=== PATIENT | male | born 1935 | race Caucasian/White ===

== ENCOUNTER 2019-07-10 13:21 | Emergency (ER) | payer MEDICARE, OTHER, SELFPAY ==
[2019-07-10 13:30] VITALS: BP 164/58; PULSE 86; RESP 14; TEMP 36.8; O2SAT 100; BMI 37.5
--- NOTE | 2019-07-10 13:41 | ED_ITS ---
HPI - Fall General Chief Complaint: Fall Stated Complaint: Fall, Thinks Broke Rib Time Seen by Provider: 07/10/19 13:35 Source: patient Mode of arrival: Ambulatory Limitations: no limitations History of Present Illness HPI Narrative: The patient is a 84-year-old male who presents with left-sided rib pain. He states that he was at [facility] with his dog when he tripped and landed on a large log. It heart and he feels like bones are moving. He denies shortness of breath. No head injury no loss of consciousness. He currently does not want anything for pain MD complaint: fall Onset (ago): hour(s) Fall from: standing Fall witnessed: no Place fall occurred: other (beach) Loss of consciousness: none Related Data Home Medications Medication Instructions Recorded Confirmed simvastatin 20 mg PO Q DAY #0 04/29/17 aspirin 81 mg tablet,delayed 162 mg PO DAILY 03/26/18 03/26/18 release cholecalciferol (vitamin D3) 50 2,000 unit PO DAILY 03/26/18 03/26/18 mcg (2,000 unit) capsule coQ10 10 ml PO DAILY 03/26/18 03/26/18 glucosamine HCl 1,500 mg tablet 1,500 mg PO DAILY 03/26/18 03/26/18 mecobalamin (vitamin B12) 1,000 1,000 mcg SL DAILY 03/26/18 03/26/18 mcg disintegrating tablet,sublingual multivitamin,dj-atum-[id number] 1 tab PO DAILY 03/26/18 03/26/18 omega 6-sfv-xcn-fish oil 1,200 mg cap PO cap 03/26/18 03/26/18 (144 mg-216 mg) capsule Previous Rx's Medication Instructions Recorded allopurinol 300 mg tablet 300 mg PO Q DAY #30 tab 04/14/18 lisinopril 40 mg tablet 40 mg PO QDAY #30 tab 11/23/18 Allergies Allergy/AdvReac Type Severity Reaction Status Date / Time Penicillins Allergy Verified 07/10/19 13:41 Review of Systems Review of Systems Narrative: GENERAL: Denies chills,fever HEENT: Denies throat pain RESPIRATORY: Denies dyspnea, cough, wheezing CARDIOVASCULAR: Denies chest pain, palpitations GASTROINTESTINAL: Denies nausea, vomiting MUSCULOSKELETAL: Left rib SKIN: No rash, no laceration, no pruritus NEUROLOGIC: Denies weakness, dizziness, headache, numbness 8 point review of systems is negative except for those stated above and HPI Patient History Medical History Cataracts, bilateral (Resolved 2012) Chickenpox (Resolved ~1944) Dupuytren's contracture of both hands (Chronic ~2014) Eczema (Chronic ~2004) Elevated PSA (Chronic 2006) Hyperlipemia (Chronic) Hypertension (Chronic) Kidney stones (Resolved ~1975) Low testosterone (Chronic 2008) Measles (Resolved ~1944) Mumps (Resolved ~1944) Osteoarthritis (Chronic ~2011) Prostate cancer (Resolved 2007) Sleep apnea (Chronic 2012) Surgical History History of cataract removal with insertion of prosthetic lens (2014) History of tonsillectomy (1939) Status post appendectomy (1974) Status post radical cystoprostatectomy (2007) Family History Father No problems noted. Mother Heart disease Social History Smoking Status: Never smoker alcohol intake: current Exam Initial Vital Signs Initial Vital Signs: Vital Signs Temperature 98.2 F 07/10/19 13:30 Pulse Rate 86 07/10/19 13:30 Respiratory Rate 14 07/10/19 13:30 Blood Pressure 164/58 H 07/10/19 13:30 Pulse Oximetry 100 07/10/19 13:30 GENERAL: Alert well-appearing elderly male HEENT: Head atraumatic,EOMI, pupils reactive, face symmetric, moist mucous membranes CARDIOVASCULAR: Regular rate and rhythm without murmurs, rubs or gallops. RESPIRATORY: Breath sounds equal bilaterally, no wheezes rales or rhonchi. Tender to touch left lateral rib the need for and 5 ABDOMEN: Soft, nontender. Normoactive bowel sounds all 4 quadrants. No guarding or rebound. EXTREMITIES: Normal range of motion, no clubbing or edema. Neurovascularly intact NEUROLOGICAL: Alert and oriented x4.Normal gait and speech. Cranial nerves II through XII grossly intact. SKIN: Warm, dry, no laceration, no petechiae, no rashes or lesions. Course Orders Ordered: ED Orders 07/10/19 13:42 XR ribs LT min 3V w CXR1V Stat Vital Signs Vital signs: Vital Signs - 8 hr 07/10/19 13:30 07/10/19 14:23 07/10/19 15:00 Temperature 98.2 F Pulse Rate 86 80 44 L Respiratory Rate 14 Blood Pressure 164/58 H Blood Pressure [Left Arm] 142/62 H 153/68 H Pulse Oximetry 100 98 100 07/10/19 15:30 Temperature Pulse Rate 83 Respiratory Rate Blood Pressure Blood Pressure [Left Arm] Pulse Oximetry MDM - Fall Imaging Data ribs: Radiologist's impression: PROCEDURE: XR RIBS LT MIN 3V W CXR1V INDICATIONS: thinks he broke a rib TECHNIQUE: 2 views of the left ribs were acquired, along with a single view chest. COMPARISON: [facility], CT, ANGIO NECK WITH CONTRAST, 03/22/2016, 9:48. [facility], CR, RIBS UNILATERAL 2 VIEWS, 07/06/2013, 13:04. FINDINGS: Surgical changes and devices: None. Bones and chest wall: Mildly displaced, acute appearing fractures involving the right lateral 9th and 10th ribs. Remote appearing right posterior lateral and left posterior lateral rib fractures are also seen. No suspicious bony lesions. Overlying soft tissues appear unremarkable. Relatively prominent degenerative changes are seen throughout. Lungs and pleura: No pleural effusions or pneumothorax. Lungs appear clear. Mediastinum: Mediastinal contours appear normal. Heart size is normal. Ather osclerotic calcification of the aortic arch is noted. IMPRESSION: Mildly displaced left posterolateral 9th and 10th ribs fractures. Dictated by: Marcus Luis M.D. on 07/10/2019 at 13:51 Approved by: Marcus Luis M.D. on 07/10/2019 at 13:5 [facility] Narrative Medical decision making narrative: No sign of pneumothorax. Patient is offered pain medications multiple times in the ED however he states while sitting he is not in that much pain and he has Tylenol at home. He is offered stronger pain medication to take at home however declines at this time. Discharge Plan Departure Patient Disposition: Home Clinical Impression: Fracture of rib of left side Qualifiers: Encounter type: initial encounter Rib fracture type: multiple ribs Fracture type: closed Qualified Code(s): S22.42XA - Multiple fractures of ribs, left side, initial encounter for closed fracture Discharge Date/Time: 07/10/19 15:30 Activity Restrictions/Additional Instructions: *You have been diagnosed with left-sided rib fracture *What to do: Ribs may hurt for the next 2-3 weeks but should start getting better. They will take up to 8 weeks to heal completely. He may need a pillow to help splint with the pain. He may also try icing 20-30 minutes at a time and removing. *Continue to take medications as directed Tylenol 1000 mg every 6 hours if needed for pain do not exceed more than 4000 mg in 24 hours *Follow up with your primary care provider in 2-3 days *Return to ER if you should have increasing pain, increasing shortness of breath or any new, worsening or concerning symptoms Prescriptions: No Action multivitamin,[id number] [Complete Multivitamin] tablet 1 tab PO DAILY RF: 0 aspirin [Adult Aspirin Regimen] 81 mg tablet,delayed release (DR/EC) 162 mg PO DAILY RF: 0 omega 2-qpj-zmq-fish oil 1,200 (144-216) mg capsule PO RF: 0 glucosamine HCl 1,500 mg tablet 1,500 mg PO DAILY RF: 0 cholecalciferol (vitamin D3) 2,000 unit capsule 2,000 unit PO DAILY RF: 0 mecobalamin (vitamin B12) 1,000 mcg tablet,disintegrating 1,000 mcg SL DAILY RF: 0 coQ10 liquid 10 ml PO DAILY RF: 0 simvastatin 20 MG tablet 20 mg PO Q DAY Qty: 0 RF: 0 allopurinol 300 mg tablet 300 mg PO Q DAY Qty: 30 RF: 6 lisinopril 40 mg tablet 40 mg PO QDAY Qty: 30 RF: 1 Referrals: Billy Rollins [Primary Care Provider] -
[2019-07-10 14:23] VITALS: BP 142/62; PULSE 80; O2SAT 98
[2019-07-10 15:00] VITALS: BP 153/68; PULSE 44; O2SAT 100
[2019-07-10 15:30] VITALS: PULSE 83
== END 2019-07-10 15:30 | disposition home or self-care (01) ==
PROVIDERS: Emergency Provider Emergency Medicine; Family Provider Internal Medicine Hematology & Oncology; PCP Physician Assistant Medical
DX: S22.42XA Multiple fractures of ribs, left side, initial encounter for closed fracture (principal); W01.198A Fall on same level from slipping, tripping and stumbling with subsequent striking against other object, initial encounter
CPT/HCPCS: 71101; 99282; 99283

== ENCOUNTER → 2020-09-21 10:16 | Outpatient (CLI) | payer MEDICARE, OTHER, SELFPAY | PROVIDERS: Family Provider Nurse Practitioner; PCP Nurse Practitioner; Referring Provider Orthopaedic Surgery Foot and Ankle Surgery; Visit Provider Family Medicine | DX: G60.3 Idiopathic progressive neuropathy (principal); L97.523 Non-pressure chronic ulcer of other part of left foot with necrosis of muscle; R60.0 Localized edema | CPT/HCPCS: 11043; 99204; 99213 ==

== ENCOUNTER → 2020-09-21 14:59 | Outpatient (ROUT) | payer MEDICARE, OTHER, SELFPAY | PROVIDERS: Family Provider Nurse Practitioner; PCP Nurse Practitioner; Visit Provider Family Medicine | DX: L08.89 Other specified local infections of the skin and subcutaneous tissue (principal) | CPT/HCPCS: 87070; 87077; 87147; 87205 ==

== ENCOUNTER → 2020-09-28 14:46 | Outpatient (CLI) | payer MEDICARE, OTHER, SELFPAY | PROVIDERS: Family Provider Nurse Practitioner; PCP Nurse Practitioner; Referring Provider Nurse Practitioner; Visit Provider Family Medicine | DX: L97.525 Non-pressure chronic ulcer of other part of left foot with muscle involvement without evidence of necrosis (principal); L08.9 Local infection of the skin and subcutaneous tissue, unspecified | CPT/HCPCS: 11042; 87070; 87075; 87077; 87186; 87205; 99213 ==

== ENCOUNTER → 2020-10-11 11:06 | Outpatient (CLI) | payer MEDICARE, OTHER, SELFPAY | PROVIDERS: Family Provider Nurse Practitioner; PCP Nurse Practitioner; Referring Provider Nurse Practitioner; Visit Provider Family Medicine | DX: G90.09 Other idiopathic peripheral autonomic neuropathy (principal); L97.529 Non-pressure chronic ulcer of other part of left foot with unspecified severity; L08.9 Local infection of the skin and subcutaneous tissue, unspecified; L03.116 Cellulitis of left lower limb | CPT/HCPCS: 87070; 87077; 87186; 87205; 99213; 99214 ==

== ENCOUNTER → 2020-10-17 13:07 | Outpatient (CLI) | payer MEDICARE, OTHER, SELFPAY ==
--- NOTE | 2020-10-17 | DI.MRI.S_ITS ---
PROCEDURE: MR FOOT LT WO/W CON INDICATIONS: Local infection of the skin TECHNIQUE: Noncontrast coronal T1 spin echo and STIR, sagittal T1 spin echo with fat saturation and STIR, axial T1 spin echo and T2 fast spin echo with fat saturation. After the administration of contrast, axial/sagittal/coronal T1 spin echo with fat saturation through the left foot. COMPARISON: None. FINDINGS: Image quality: Excellent. Bones: There is marrow edema involving medial and lateral sesamoids of 1st metatarsal head. No gross bony erosion. No fracture line is seen. No other area of abnormal marrow signal is noted. No suspicious intraosseous lesion. Midfoot and forefoot joint osteoarthritic changes are noted more prominent at 1st MTP joint. No abnormal intraosseous enhancement. Soft tissues: There is full-thickness ulceration involving plantar aspect of left foot at the level of 1st metatarsal head. Thickened underlying flexor tendon of great toe is seen with small amount of fluid distending tendon sheath. No discrete drainable abscess collection is seen. There is also midfoot and forefoot dorsal soft tissue edema and swelling. Extensor and flexor tendons are grossly intact. IMPRESSION: 1. Full-thickness ulceration involving medial aspect of forefoot at the level of 1st metatarsal head with surrounding cellulitis. Cellulitis also seen over dorsal aspect of midfoot and forefoot. No discrete drainable fluid collection is seen. 2. Suggestion of osteomyelitis in the adjacent medial and lateral sesamoid bones of 1st metatarsal head. No other area of abnormal marrow signal is seen. No fracture or dislocation. Midfoot and forefoot joint osteoarthritis. 3. Small amount of fluid surrounding mildly thickened flexor tendon of great toe at the level of 1st metatarsal head and distal shaft suggestive of low to moderate grade tenosynovitis. No full-thickness tendon rupture. Lisfranc ligament and joint is intact. Dictated by: Mervin Goyal M.D. on 10/17/2020 at 15:40 Approved by: Mervin Goyal M.D. on 10/17/2020 at 15:44
== END ==
PROVIDERS: Family Provider Nurse Practitioner; PCP Nurse Practitioner; Referring Provider Family Medicine; Visit Provider Family Medicine
DX: L08.9 Local infection of the skin and subcutaneous tissue, unspecified (principal); L97.529 Non-pressure chronic ulcer of other part of left foot with unspecified severity; L03.116 Cellulitis of left lower limb; M19.072 Primary osteoarthritis, left ankle and foot
CPT/HCPCS: 73720; A9579

== ENCOUNTER → 2020-10-18 10:24 | Outpatient (CLI) | payer MEDICARE, OTHER, SELFPAY | PROVIDERS: Family Provider Nurse Practitioner; PCP Nurse Practitioner; Referring Provider Nurse Practitioner; Visit Provider Family Medicine | DX: G90.09 Other idiopathic peripheral autonomic neuropathy (principal); L97.524 Non-pressure chronic ulcer of other part of left foot with necrosis of bone; M86.172 Other acute osteomyelitis, left ankle and foot; M65.172 Other infective (teno)synovitis, left ankle and foot; L08.9 Local infection of the skin and subcutaneous tissue, unspecified; Z79.2 Long term (current) use of antibiotics; L03.116 Cellulitis of left lower limb | CPT/HCPCS: 36415; 80053; 85025; 85651; 86140; 99213; 99215 ==

== ENCOUNTER → 2020-10-18 11:15 | Outpatient (CLI) | payer MEDICARE, OTHER, SELFPAY ==
[2020-10-18 12:00] LABS: Add Manual Diff / Slide Review NO; Basophils Absolute Auto 0 /uL (0-100); Basophils Percent Auto 0.6 % (0-2); Eosinophils Absolute Auto 100 /uL (0-450); Eosinophils Percent Auto 2.2 % (2-4); Hemoglobin 13.2 g/dL (13.5-17.5); Lymphocytes Absolute Auto 700 /uL (1100-4500); Lymphocytes Percent Auto 12.6 % (25-40); Mean Corpuscular Hemoglobin 30.4 PG (26-34); Monocytes Absolute Auto 500 /uL (0-900); Monocytes Percent Auto 9.6 % (3-14); Neutrophils Absolute Auto 4000 /uL (1500-7000); Platelet Count 343 X10^3/uL (150-400); Red Blood Cell Count 4.35 X10^6/uL (4.5-5.9); Red Cell Distribution Width 14.3 % (11.6-14.8); White Blood Cell Count 5.3 X10^3/uL (4.5-11.0)
[2020-10-18 12:15] LABS: Alanine Aminotransferase 15 IU/L (<50); Albumin 4.7 g/dL (3.5-5.0); Albumin Globulin Ratio 1.7 (1.0-2.8); Alkaline Phosphatase 60 U/L (38-126); Aspartate Aminotransferase 21 IU/L (17-59); BUN Creatinine Ratio 30.2 (6-22); Bilirubin Total 0.3 mg/dL (0.2-1.3); Blood Urea Nitrogen 35 mg/dL (9-20); C-Reactive Protein Quant 0.6 mg/dL (<1.0); Calcium 10.3 mg/dL (8.4-10.2); Carbon Dioxide 27 mmol/L (22-32); Chloride 104 mmol/L (98-107); Estimated Glomerular Filt Rate > 60.0 mL/min (>60); Globulin 2.7 g/dL (1.7-4.1); Glucose 104 mg/dL (80-110); HEMOLYSIS < 15 (0-50); Potassium 4.6 mmol/L (3.4-5.1); Sodium 138 mmol/L (137-145); Total Protein 7.4 g/dL (6.3-8.2)
[2020-10-18 12:43] LABS: Erythrocyte Sedimentation Rate 18 MM/HR (0-15)
== END ==
PROVIDERS: Family Provider Nurse Practitioner; PCP Nurse Practitioner; Referring Provider Family Medicine; Visit Provider Family Medicine
DX: L97.524 Non-pressure chronic ulcer of other part of left foot with necrosis of bone (principal); Z79.2 Long term (current) use of antibiotics; L03.116 Cellulitis of left lower limb
CPT/HCPCS: 36415; 80053; 85025; 85651; 86140

== ENCOUNTER 2020-12-25 16:45 | Emergency (ER) | payer MEDICARE, OTHER, SELFPAY ==
[2020-12-25] VITALS (21 sets, daily range): BP systolic 153–207; BP diastolic 66–95; PULSE 66–82; RESP 30; TEMP 36.4; O2SAT 97–100
--- NOTE | 2020-12-25 17:07 | ED.MALEGU ---
HPI - Male Genitourinary <Christopher Odom DO - Last Filed: 12/26/20 16:56> General Chief complaint: Urogenital-Male Stated complaint: Needs Cath, In Extreme Pain Time Seen by Provider: 12/25/20 16:55 Source: patient Mode of arrival: Ambulatory Limitations: no limitations History of Present Illness HPI Narrative: 85-year-old male nonsmoker with a remote history of radical prostatectomy and previous episodes of hematuria and urinary retention presents with a chief complaint severe suprapubic pain is requesting a catheter. He states he has had difficulty urinating over the course of the day. He denies any dizziness, weakness or lightheadedness. He denies any fever or chills. He has no chest pain or shortness of breath. He does not take any blood thinners. He denies any new medications or dietary change. Onset (ago): hour(s) Duration: constant Severity: moderate Quality: aching Relieving factors: none Exacerbating factors: none Context: new medication Associated symptoms: Reports urinary retention Related Data Home Medications Medication Instructions Recorded Confirmed simvastatin 20 mg PO Q DAY #0 04/29/17 aspirin 81 mg tablet,delayed 162 mg PO DAILY 03/26/18 03/26/18 release cholecalciferol (vitamin D3) 50 2,000 unit PO DAILY 03/26/18 03/26/18 mcg (2,000 unit) capsule coQ10 10 ml PO DAILY 03/26/18 03/26/18 glucosamine HCl 1,500 mg tablet 1,500 mg PO DAILY 03/26/18 03/26/18 mecobalamin (vitamin B12) 1,000 1,000 mcg SL DAILY 03/26/18 03/26/18 mcg disintegrating tablet,sublingual multivitamin,wk-pyzz-cuubdsve 1 tab PO DAILY 03/26/18 03/26/18 omega [id number]-[id number]-fish oil 1,200 mg cap PO cap 03/26/18 03/26/18 (144 mg-216 mg) capsule Previous Rx's Medication Instructions Recorded allopurinol 300 mg tablet 300 mg PO Q DAY #30 tab 04/14/18 lisinopril 40 mg tablet 40 mg PO QDAY #30 tab 11/23/18 Allergies Allergy/AdvReac Type Severity Reaction Status Date / Time Penicillins Allergy Verified 07/10/19 13:41 Review of Systems <Christopher Odom DO - Last Filed: 12/26/20 16:56> Constitutional Constitutional: Denies chills, Denies fatigue, Denies fever(s), Denies frequent falls, Denies lethargy and Denies weakness Eyes Eyes: Denies change in vision, Denies eye discharge, Denies irritation and Denies loss of vision ENT Ears, Nose, Mouth, and Throat: Denies change in voice, Denies dizziness, Denies neck pain, Denies sore throat and Denies throat swelling Cardiovascular Cardiovascular: Denies chest pain, Denies irregular heart rhythm, Denies lightheadedness, Denies palpitations, Denies dyspnea, Denies dyspnea on exertion and Denies orthopnea Respiratory Respiratory: Denies cough, Denies dyspnea, Denies dyspnea on exertion and Denies wheezing Gastrointestinal Gastrointestinal: Denies abdominal pain, Denies change in bowel habits, Denies diarrhea, Denies nausea and Denies vomiting Musculoskeletal Musculoskeletal: Denies neck pain and Denies numbness Integumentary/Breasts Skin/Breast: Denies pruritus, Denies erythema, Denies rash and Denies wounds Neurologic Neurologic: Denies behavioral changes, Denies confusion, Denies dizziness, Denies frequent falls, Denies loss of vision, Denies numbness and Denies weakness Psychiatric Psychiatric: Denies anxiety, Denies behavioral changes, Denies confusion, Denies depression, Denies homicidal ideation and Denies suicidal ideation Endocrine Endocrine: Denies fatigue, Denies flushing and Denies palpitations Hematologic/Lymphatic Hematologic/Lymphatic: Denies easy bruising Allergic/Immunologic Allergic/Immunologic: Denies urticaria, Denies throat swelling and Denies wheezing Patient History <Christopher Odom DO - Last Filed: 12/26/20 16:56> Medical History (Updated 12/25/20 @ 20:57 by Christopher Odom DO) Cataracts, bilateral (2012) Chickenpox (~1945) Dupuytren's contracture of both hands (~2014) Eczema (~2004) Elevated PSA (2006) Hyperlipemia Hypertension Kidney stones (~1975) Low testosterone (2008) Measles (~194) Mumps (~194) Osteoarthritis (~2011) Prostate cancer (2007) Sleep apnea (2012) Surgical History History of cataract removal with insertion of prosthetic lens (2014) History of tonsillectomy (1940) Status post appendectomy (1974) Status post radical cystoprostatectomy (2007) Family History Father No problems noted. Mother Heart disease Social History Smoking Status: Never smoker alcohol intake: current Smoking Status: Never smoker alcohol intake frequency: a few times a week Alcohol type: wine Substance Use Type: does not use Exam <Christopher Odom DO - Last Filed: 12/26/20 16:56> Narrative Exam Narrative: GENERAL: [85] year old patient appears stated age. Well-nourished, well-developed patient, in mild distress. Hard of hearing HEAD: Atraumatic. Normocephalic. EYES: Pupils equal round and reactive. Extraocular motions intact. No scleral icterus. No injection or drainage. ENT: Nose without bleeding, purulent drainage. Throat without erythema, tonsillar hypertrophy or exudate. Airway patent. NECK: Trachea midline. Non tender CARDIOVASCULAR: Regular rate and rhythm without murmurs, gallops, or rubs. RESPIRATORY: Clear to auscultation. Breath sounds equal bilaterally. No wheezes, rales, or rhonchi. GASTROINTESTINAL: Abdomen soft, suprapubic tenderness, nondistended. EXTREMITIES: No edema or joint tenderness. BACK: Nontender without deformity or crepitance. No flank tenderness. NEURO: AOx3. SKIN: No rash or erythema of visible areas Initial Vital Signs Initial Vital Signs: Vital Signs Temperature 97.5 F L 12/25/20 16:55 Pulse Rate 67 12/25/20 16:55 Respiratory Rate 30 H 12/25/20 16:55 Blood Pressure 194/92 H 12/25/20 16:55 Pulse Oximetry 98 12/25/20 16:55 <Joni Norwood DO - Last Filed: 12/26/20 06:44> Initial Vital Signs Initial Vital Signs: Vital Signs Temperature 97.5 F L 12/25/20 16:55 Pulse Rate 67 12/25/20 16:55 Respiratory Rate 30 H 12/25/20 16:55 Blood Pressure 194/92 H 12/25/20 16:55 Pulse Oximetry 98 12/25/20 16:55 <Anna Ríos, DO - Last Filed: 12/26/20 19:07> Initial Vital Signs Initial Vital Signs: Vital Signs Temperature 97.5 F L 12/25/20 16:55 Pulse Rate 67 12/25/20 16:55 Respiratory Rate 30 H 12/25/20 16:55 Blood Pressure 194/92 H 12/25/20 16:55 Pulse Oximetry 98 12/25/20 16:55 Course <Christopher Odom, DO - Last Filed: 12/26/20 16:56> Course Course Narrative: Bladder scan suggest very little urine in the bladder, however 3 way Jones catheter is placed and notes gross hematuria up to about 500 mL. The patient has a near immediate and complete relief of his discomfort. Labs ordered, CT IVP and instruction to irrigate bladder to clear initiated patient still not clear after 3L irrigation, call to our on-call urologist upon receipt of the CT IVP and after discussion of the findings he recommends transfer to a facility that has interventional radiology as he states that he would be unlikely to place a ureteral stent based on the findings of the CT. 2099 -I have discussed the case with Urology at [facility] and he states that the facility would be appropriate if and when a bed opens up as Interventional Radiology would routinely back him up under the circumstances. We have placed the patient in the cue for a bed, hopefully early tomorrow 2100 - VM contacted given the possibility of bed availability Orders Ordered: ED Orders 12/26/20 15:15 BMP [Basic Metabolic Panel] Stat Complete Blood Count AUTO DIFF Stat Discontinued Medications Melatonin (Melatonin 3 Mg Tablet) 9 mg PO BEDTIME [facility] Melatonin (Melatonin 3 Mg Tablet) 9 mg PO NOW ONE Stop: 12/26/20 00:48 Last Admin: 12/26/20 00:56 Dose: 9 mg Documented by: NINOSKA Sodium Chloride (Sodium Chloride Irrig Solution 3,000 Ml) 3,000 ml IRR NOW ONE Stop: 12/25/20 21:43 Last Admin: 12/25/20 21:43 Dose: 3,000 ml Documented by: ALISA Sodium Chloride (Sodium Chloride Irrig Solution 3,000 Ml) 3,000 ml IRR NOW ONE Stop: 12/25/20 23:03 Last Admin: 12/25/20 23:05 Dose: 3,000 ml Documented by: ALISA Sodium Chloride (Sodium Chloride Irrig Solution 3,000 Ml) 3,000 ml IRR NOW ONE Stop: 12/26/20 00:11 Last Admin: 12/26/20 00:12 Dose: 3,000 ml Documented by: NINOSKA Sodium Chloride (Sodium Chloride Irrig Solution 3,000 Ml) 3,000 ml IRR NOW ONE Stop: 12/26/20 03:18 Last Admin: 12/26/20 03:20 Dose: 3,000 ml Documented by: NINOSKA Sodium Chloride (Sodium Chloride Irrig Solution 3,000 Ml) 3,000 ml IRR NOW ONE Stop: 12/26/20 04:28 Last Admin: 12/26/20 04:28 Dose: 3,000 ml Documented by: NINOSKA Vital Signs Vital signs: Vital Signs - 8 hr 12/26/20 11:30 12/26/20 11:31 12/26/20 12:00 Pulse Rate 76 71 73 Blood Pressure 182/82 H Pulse Oximetry 98 98 98 12/26/20 12:01 12/26/20 12:30 12/26/20 12:31 Pulse Rate 71 72 70 Blood Pressure 174/81 H 170/83 H Pulse Oximetry 98 98 98 12/26/20 13:00 12/26/20 13:01 12/26/20 13:30 Pulse Rate 74 69 69 Blood Pressure 167/77 H Pulse Oximetry 98 98 97 12/26/20 13:31 12/26/20 14:00 12/26/20 14:01 Pulse Rate 77 74 75 Blood Pressure 153/69 H 184/80 H Pulse Oximetry 98 98 98 12/26/20 14:30 12/26/20 14:31 12/26/20 15:00 Pulse Rate 71 76 79 Blood Pressure 179/85 H Pulse Oximetry 98 98 98 12/26/20 15:01 12/26/20 15:30 12/26/20 15:31 Pulse Rate 73 76 80 Blood Pressure 174/81 H 175/82 H Pulse Oximetry 98 99 98 12/26/20 16:00 12/26/20 16:01 Pulse Rate 77 77 Blood Pressure 176/79 H Pulse Oximetry 97 98 <Joni Norwood DO - Last Filed: 12/26/20 06:44> Orders Ordered: ED Orders 12/26/20 15:15 BMP [Basic Metabolic Panel] Stat Complete Blood Count AUTO DIFF Stat Discontinued Medications Melatonin (Melatonin 3 Mg Tablet) 9 mg PO BEDTIME [facility] Melatonin (Melatonin 3 Mg Tablet) 9 mg PO NOW ONE Stop: 12/26/20 00:48 Last Admin: 12/26/20 00:56 Dose: 9 mg Documented by: NINOSKA Sodium Chloride (Sodium Chloride Irrig Solution 3,000 Ml) 3,000 ml IRR NOW ONE Stop: 12/25/20 21:43 Last Admin: 12/25/20 21:43 Dose: 3,000 ml Documented by: ALISA Sodium Chloride (Sodium Chloride Irrig Solution 3,000 Ml) 3,000 ml IRR NOW ONE Stop: 12/25/20 23:03 Last Admin: 12/25/20 23:05 Dose: 3,000 ml Documented by: ALISA Sodium Chloride (Sodium Chloride Irrig Solution 3,000 Ml) 3,000 ml IRR NOW ONE Stop: 12/26/20 00:11 Last Admin: 12/26/20 00:12 Dose: 3,000 ml Documented by: NINOSKA Sodium Chloride (Sodium Chloride Irrig Solution 3,000 Ml) 3,000 ml IRR NOW ONE Stop: 12/26/20 03:18 Last Admin: 12/26/20 03:20 Dose: 3,000 ml Documented by: NINOSKA Sodium Chloride (Sodium Chloride Irrig Solution 3,000 Ml) 3,000 ml IRR NOW ONE Stop: 12/26/20 04:28 Last Admin: 12/26/20 04:28 Dose: 3,000 ml Documented by: NINOSKA Vital Signs Vital signs: Vital Signs - 8 hr 12/26/20 11:30 12/26/20 11:31 12/26/20 12:00 Pulse Rate 76 71 73 Blood Pressure 182/82 H Pulse Oximetry 98 98 98 12/26/20 12:01 12/26/20 12:30 12/26/20 12:31 Pulse Rate 71 72 70 Blood Pressure 174/81 H 170/83 H Pulse Oximetry 98 98 98 12/26/20 13:00 12/26/20 13:01 12/26/20 13:30 Pulse Rate 74 69 69 Blood Pressure 167/77 H Pulse Oximetry 98 98 97 12/26/20 13:31 12/26/20 14:00 12/26/20 14:01 Pulse Rate 77 74 75 Blood Pressure 153/69 H 184/80 H Pulse Oximetry 98 98 98 12/26/20 14:30 12/26/20 14:31 12/26/20 15:00 Pulse Rate 71 76 79 Blood Pressure 179/85 H Pulse Oximetry 98 98 98 12/26/20 15:01 12/26/20 15:30 12/26/20 15:31 Pulse Rate 73 76 80 Blood Pressure 174/81 H 175/82 H Pulse Oximetry 98 99 98 12/26/20 16:00 12/26/20 16:01 Pulse Rate 77 77 Blood Pressure 176/79 H Pulse Oximetry 97 98 <Anna Ríos DO - Last Filed: 12/26/20 19:07> Orders Ordered: ED Orders 12/26/20 15:15 BMP [Basic Metabolic Panel] Stat Complete Blood Count AUTO DIFF Stat Discontinued Medications Melatonin (Melatonin 3 Mg Tablet) 9 mg PO BEDTIME [facility] Melatonin (Melatonin 3 Mg Tablet) 9 mg PO NOW ONE Stop: 12/26/20 00:48 Last Admin: 12/26/20 00:56 Dose: 9 mg Documented by: NINOSKA Sodium Chloride (Sodium Chloride Irrig Solution 3,000 Ml) 3,000 ml IRR NOW ONE Stop: 12/25/20 21:43 Last Admin: 12/25/20 21:43 Dose: 3,000 ml Documented by: ALISA Sodium Chloride (Sodium Chloride Irrig Solution 3,000 Ml) 3,000 ml IRR NOW ONE Stop: 12/25/20 23:03 Last Admin: 12/25/20 23:05 Dose: 3,000 ml Documented by: ALISA Sodium Chloride (Sodium Chloride Irrig Solution 3,000 Ml) 3,000 ml IRR NOW ONE Stop: 12/26/20 00:11 Last Admin: 12/26/20 00:12 Dose: 3,000 ml Documented by: NINOSKA Sodium Chloride (Sodium Chloride Irrig Solution 3,000 Ml) 3,000 ml IRR NOW ONE Stop: 12/26/20 03:18 Last Admin: 12/26/20 03:20 Dose: 3,000 ml Documented by: NINOSKA Sodium Chloride (Sodium Chloride Irrig Solution 3,000 Ml) 3,000 ml IRR NOW ONE Stop: 12/26/20 04:28 Last Admin: 12/26/20 04:28 Dose: 3,000 ml Documented by: NINOSKA Consultations Consultation #1: Dr. Mendoza hospitalist at [facility], it happy to accept the patient but would like us to speak with Urology first before transfer. No beds current available at the moment. Consultation #2: Dr. Gonzalez at [facility] accepts for transfer. Discussed recommendations from Dr. Morley urology at [facility] last night that was discussed with Dr. Odom at that time and patient needs urology and IR for treatment per our urology and is not available to us. Reviewed patient's labs, imaging and past history. Time: 14:31 Vital Signs Vital signs: Vital Signs - 8 hr 12/26/20 11:30 12/26/20 11:31 12/26/20 12:00 Pulse Rate 76 71 73 Blood Pressure 182/82 H Pulse Oximetry 98 98 98 12/26/20 12:01 12/26/20 12:30 12/26/20 12:31 Pulse Rate 71 72 70 Blood Pressure 174/81 H 170/83 H Pulse Oximetry 98 98 98 12/26/20 13:00 12/26/20 13:01 12/26/20 13:30 Pulse Rate 74 69 69 Blood Pressure 167/77 H Pulse Oximetry 98 98 97 12/26/20 13:31 12/26/20 14:00 12/26/20 14:01 Pulse Rate 77 74 75 Blood Pressure 153/69 H 184/80 H Pulse Oximetry 98 98 98 12/26/20 14:30 12/26/20 14:31 12/26/20 15:00 Pulse Rate 71 76 79 Blood Pressure 179/85 H Pulse Oximetry 98 98 98 12/26/20 15:01 12/26/20 15:30 12/26/20 15:31 Pulse Rate 73 76 80 Blood Pressure 174/81 H 175/82 H Pulse Oximetry 98 99 98 12/26/20 16:00 12/26/20 16:01 Pulse Rate 77 77 Blood Pressure 176/79 H Pulse Oximetry 97 98 MDM - Male Genitourinary <Christopher Odom, DO - Last Filed: 12/26/20 16:56> Lab Data Result diagrams: 12/26/20 15:15 12/26/20 15:15 Labs: Lab Results 12/25/20 12/25/20 12/25/20 Range/Units 17:28 17:28 17:28 WBC 6.5 (4.5-11.0) X10^3/uL RBC 3.89 L (4.5-5.9) X10^6/uL Hgb 11.8 L (13.5-17.5) g/dL Hct 36.1 L (41-53) % MCV 92.8 (80-100) fL MCH 30.4 (26-34) PG MCHC 32.8 (30-36) % RDW 15.5 H (11.6-14.8) % Plt Count 267 (150-400) X10^3/uL Neut % (Auto) 81.8 H (50-75) % Lymph % (Auto) 11.4 L (25-40) % Alfalfa % (Auto) 6.6 (3-14) % Eos % (Auto) 0.0 L (2-4) % Baso % (Auto) 0.2 (0-2) % Neut # (Auto) 5300 (4635-7128) /uL Lymph # (Auto) 700 L (0154-4989) /uL Alfalfa # (Auto) 400 (0-900) /uL Eos # (Auto) 0 (0-450) /uL Baso # (Auto) 0 (0-100) /uL PT 13.4 H (10.1-12.7) SECONDS INR 1.2 (0.9-1.3) Sodium (137-145) mmol/L Potassium (3.4-5.1) mmol/L Chloride (98-107) mmol/L Carbon Dioxide (22-32) mmol/L BUN (9-20) mg/dL Creatinine (0.66-1.25) mg/dL Estimated GFR (>60) mL/min BUN/Creatinine Ratio (6-22) Glucose (80-110) mg/dL Calcium (8.4-10.2) mg/dL Total Bilirubin (0.2-1.3) mg/dL AST (17-59) IU/L ALT (<50) IU/L Alkaline Phosphatase (38-126) U/L Total Protein (6.3-8.2) g/dL Albumin (3.5-5.0) g/dL Globulin (1.7-4.1) g/dL Albumin/Globulin Ratio (1.0-2.8) Urine Color Red Urine Appearance Turbid Urine pH 7.0 (4.5-8.0) Ur Specific [place] 1.015 (1.000-1.035) Urine Protein 3+ H (Negative) Urine Glucose (UA) Trace H (Negative) g/dL Urine Ketones Negative (NEGATIVE) Urine Occult Blood 3+ H (Negative) Urine Nitrate Negative (Negative) Urine Bilirubin Negative (NEGATIVE) Urine Urobilinogen 0.2 (0.2) E.U./dL Ur Leukocyte Esterase Trace H (NEGATIVE) Urine RBC >100/hpf H (0-5/HPF) Urine WBC None seen (0-5/HPF) Ur Squamous Epith Cells None seen (0-5/HPF) Urine Bacteria None seen (None) Ur Culture Indicated? Cult not indicated SARS-CoV-2 (PCR) (Negative) Blood Type Antibody Screen 12/25/20 12/25/20 12/25/20 Range/Units 17:28 19:24 19:41 WBC (4.5-11.0) X10^3/uL RBC (4.5-5.9) X10^6/uL Hgb 12.0 L (13.5-17.5) g/dL Hct 36.1 L (41-53) % MCV (80-100) fL MCH (26-34) PG MCHC (30-36) % RDW (11.6-14.8) % Plt Count (150-400) X10^3/uL Neut % (Auto) (50-75) % Lymph % (Auto) (25-40) % Alfalfa % (Auto) (3-14) % Eos % (Auto) (2-4) % Baso % (Auto) (0-2) % Neut # (Auto) (9852-4149) /uL Lymph # (Auto) (4880-2573) /uL Alfalfa # (Auto) (0-900) /uL Eos # (Auto) (0-450) /uL Baso # (Auto) (0-100) /uL PT (10.1-12.7) SECONDS INR (0.9-1.3) Sodium 136 L (137-145) mmol/L Potassium 5.1 (3.4-5.1) mmol/L Chloride 105 (98-107) mmol/L Carbon Dioxide 19 L (22-32) mmol/L BUN 34 H (9-20) mg/dL Creatinine 1.56 H (0.66-1.25) mg/dL Estimated GFR 42.7 L (>60) mL/min BUN/Creatinine Ratio 21.8 (6-22) Glucose 125 H (80-110) mg/dL Calcium 10.4 H (8.4-10.2) mg/dL Total Bilirubin 0.3 (0.2-1.3) mg/dL AST 24 (17-59) IU/L ALT 13 (<50) IU/L Alkaline Phosphatase 58 (38-126) U/L Total Protein 7.5 (6.3-8.2) g/dL Albumin 4.5 (3.5-5.0) g/dL Globulin 3.0 (1.7-4.1) g/dL Albumin/Globulin Ratio 1.5 (1.0-2.8) Urine Color Urine Appearance Urine pH (4.5-8.0) Ur Specific [place] (1.000-1.035) Urine Protein (Negative) Urine Glucose (UA) (Negative) g/dL Urine Ketones (NEGATIVE) Urine Occult Blood (Negative) Urine Nitrate (Negative) Urine Bilirubin (NEGATIVE) Urine Urobilinogen (0.2) E.U./dL Ur Leukocyte Esterase (NEGATIVE) Urine RBC (0-5/HPF) Urine WBC (0-5/HPF) Ur Squamous Epith Cells (0-5/HPF) Urine Bacteria (None) Ur Culture Indicated? SARS-CoV-2 (PCR) Negative (Negative) Blood Type Antibody Screen 12/25/20 12/25/20 12/25/20 Range/Units 19:41 19:45 23:30 WBC (4.5-11.0) X10^3/uL RBC (4.5-5.9) X10^6/uL Hgb 11.4 L (13.5-17.5) g/dL Hct 35.0 L (41-53) % MCV (80-100) fL MCH (26-34) PG MCHC (30-36) % RDW (11.6-14.8) % Plt Count (150-400) X10^3/uL Neut % (Auto) (50-75) % Lymph % (Auto) (25-40) % Alfalfa % (Auto) (3-14) % Eos % (Auto) (2-4) % Baso % (Auto) (0-2) % Neut # (Auto) (5673-1549) /uL Lymph # (Auto) (5945-0866) /uL [place]alfa # (Auto) (0-900) /uL Eos # (Auto) (0-450) /uL Baso # (Auto) (0-100) /uL PT (10.1-12.7) SECONDS INR (0.9-1.3) Sodium (137-145) mmol/L Potassium (3.4-5.1) mmol/L Chloride (98-107) mmol/L Carbon Dioxide (22-32) mmol/L BUN (9-20) mg/dL Creatinine 1.41 H (0.66-1.25) mg/dL Estimated GFR 48.0 L (>60) mL/min BUN/Creatinine Ratio (6-22) Glucose (80-110) mg/dL Calcium (8.4-10.2) mg/dL Total Bilirubin (0.2-1.3) mg/dL AST (17-59) IU/L ALT (<50) IU/L Alkaline Phosphatase (38-126) U/L Total Protein (6.3-8.2) g/dL Albumin (3.5-5.0) g/dL Globulin (1.7-4.1) g/dL Albumin/Globulin Ratio (1.0-2.8) Urine Color Urine Appearance Urine pH (4.5-8.0) Ur Specific [place] (1.000-1.035) Urine Protein (Negative) Urine Glucose (UA) (Negative) g/dL Urine Ketones (NEGATIVE) Urine Occult Blood (Negative) Urine Nitrate (Negative) Urine Bilirubin (NEGATIVE) Urine Urobilinogen (0.2) E.U./dL Ur Leukocyte Esterase (NEGATIVE) Urine RBC (0-5/HPF) Urine WBC (0-5/HPF) Ur Squamous Epith Cells (0-5/HPF) Urine Bacteria (None) Ur Culture Indicated? SARS-CoV-2 (PCR) (Negative) Blood Type A Positive Antibody Screen Negative 12/26/20 12/26/20 Range/Units 15:15 15:15 WBC 7.2 (4.5-11.0) X10^3/uL RBC 3.85 L (4.5-5.9) X10^6/uL Hgb 11.7 L (13.5-17.5) g/dL Hct 35.9 L (41-53) % MCV 93.3 (80-100) fL MCH 30.4 (26-34) PG MCHC 32.6 (30-36) % RDW 15.8 H (11.6-14.8) % Plt Count 280 (150-400) X10^3/uL Neut % (Auto) 78.3 H (50-75) % Lymph % (Auto) 12.3 L (25-40) % Alfalfa % (Auto) 9.2 (3-14) % Eos % (Auto) 0.0 L (2-4) % Baso % (Auto) 0.2 (0-2) % Neut # (Auto) 5600 (9300-5771) /uL Lymph # (Auto) 900 L (2986-1345) /uL Alfalfa # (Auto) 700 (0-900) /uL Eos # (Auto) 0 (0-450) /uL Baso # (Auto) 0 (0-100) /uL PT (10.1-12.7) SECONDS INR (0.9-1.3) Sodium 136 L (137-145) mmol/L Potassium 4.5 (3.4-5.1) mmol/L Chloride 105 (98-107) mmol/L Carbon Dioxide 23 (22-32) mmol/L BUN 32 H (9-20) mg/dL Creatinine 1.40 H (0.66-1.25) mg/dL Estimated GFR 48.4 L (>60) mL/min BUN/Creatinine Ratio 22.9 H (6-22) Glucose 119 H (80-110) mg/dL Calcium 10.8 H (8.4-10.2) mg/dL Total Bilirubin (0.2-1.3) mg/dL AST (17-59) IU/L ALT (<50) IU/L Alkaline Phosphatase (38-126) U/L Total Protein (6.3-8.2) g/dL Albumin (3.5-5.0) g/dL Globulin (1.7-4.1) g/dL Albumin/Globulin Ratio (1.0-2.8) Urine Color Urine Appearance Urine pH (4.5-8.0) Ur Specific [place] (1.000-1.035) Urine Protein (Negative) Urine Glucose (UA) (Negative) g/dL Urine Ketones (NEGATIVE) Urine Occult Blood (Negative) Urine Nitrate (Negative) Urine Bilirubin (NEGATIVE) Urine Urobilinogen (0.2) E.U./dL Ur Leukocyte Esterase (NEGATIVE) Urine RBC (0-5/HPF) Urine WBC (0-5/HPF) Ur Squamous Epith Cells (0-5/HPF) Urine Bacteria (None) Ur Culture Indicated? SARS-CoV-2 (PCR) (Negative) Blood Type Antibody Screen Imaging Data CT scan - abdomen/pelvis: Radiologist's Impression: Abby Chaney N 85 M [address] [id number] Scan ReportSigned Patient: Abby Chaney NMR#: [id number]: [id number]:[id number]/Sex: 85 / MDate of Service: 12/25/20Loc: EDAccession Number: [id number] Procedure: CT abdomen pelvis wo/w con Ordering Provider: Christopher Odom D.O. PROCEDURE: CT ABDOMEN PELVIS WO/W CON INDICATIONS: significant hematuria TECHNIQUE: After the administration of oral contrast, 5 mm thick sections acquired from the diaphragms to the iliac crests. After the administration of intravenous contrast, 5 mm thick sections acquired from the diaphragms to the symphysis. 5 mm thick coronal and sagittal reformats were acquired. For radiation dose reduction, the following was used: automated exposure control, adjustment of mA and/or kV according to patient size. COMPARISON: None. FINDINGS: Image quality: Excellent. ABDOMEN: Lung bases: Scattered fibrotic changes at the posterior lung bases. Heavy coronary artery calcification.. Heart size is normal. Solid organs: Moderate left hydronephrosis and diffuse, tortuous left hydroureter. No left intrarenal calculi or significant perinephric inflammation. Mild right hydronephrosis and minor distal hydroureter. There is a finally septated right renal cyst in the lower pole of the right kidney. This measures about 3.1 cm. Postcontrast, there is no excretion of IV contrast seen from the left kidney. Mild , slightly decreased homogeneous enhancement of the left renal parenchyma. Scattered subcentimeter hypodensities throughout the liver. The right lobe of the liver is elongated. Several small parenchymal calcifications are seen throughout the pancreas. No ductal dilatation. The gallbladder and biliary tree are normal. The adrenal glands demonstrate nodular thickening bilaterally without dominant mass. Spleen is normal. Bowel and peritoneum: Stomach, small and large bowel loops are normal in caliber and wall thickness. Sigmoid diverticulosis. No free fluid or air. Nodes and vessels: No retroperitoneal or mesenteric adenopathy by size criteria. Aorta and inferior vena are normal in caliber. Heavy abdominal aortic atherosclerotic calcification. Miscellaneous: Tiny fat containing umbilical hernia. PELVIS: Genitourinary: The urinary bladder is mildly distended and there is a large hyperdense intraluminal mass adjacent to Jones catheter balloon. This measures roughly 7.4 x 4.9 x 6.3 cm. Along the left aspect of the urinary bladder and obstructing the left ureterovesicular junction, there is irregular, enhancing wall thickening suspicious for mass.. Miscellaneous: There is a peripherally calcified involuting cystic mass in the right adnexa measuring 5.6 by 3.7 cm, previously 8.6 by 5.7 cm in the remote past. No inguinal hernias or adenopathy. Fat containing suprapubic hernia. Bones: No suspicious bony lesions. Diffuse osteopenia. Spondylosis at L5-S1 and bridging osteophytosis throughout the spine. No vertebral body compression fractures. IMPRESSION: 1. Diffuse thickening of the left urinary bladder wall obstructing left ureterovesicular junction is suspicious for carcinoma. There is a large adjacent hematoma in the urinary bladder as well as a Jones catheter. 2. There is asymmetric, absence of excretion of contrast from the left kidney suggesting significant delay in function as well as chronic left hydroureteronephrosis. This is likely due to obstructing distal mass causing decreased renal function. 3. 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 4. No visible adenopathy. 5. Findings of chronic pancreatitis. 6. Heavy coronary artery calcification. Dictated by: Paula Moncada M.D. on 12/25/2020 at 18:49 Approved by: Paula Moncada M.D. on 12/25/2020 at 19:02 <Joni Norwood DO - Last Filed: 12/26/20 06:44> Lab Data Labs: Lab Results 12/25/20 12/25/20 12/25/20 Range/Units 17:28 17:28 17:28 WBC 6.5 (4.5-11.0) X10^3/uL RBC 3.89 L (4.5-5.9) X10^6/uL Hgb 11.8 L (13.5-17.5) g/dL Hct 36.1 L (41-53) % MCV 92.8 (80-100) fL MCH 30.4 (26-34) PG MCHC 32.8 (30-36) % RDW 15.5 H (11.6-14.8) % Plt Count 267 (150-400) X10^3/uL Neut % (Auto) 81.8 H (50-75) % Lymph % (Auto) 11.4 L (25-40) % Alfalfa % (Auto) 6.6 (3-14) % Eos % (Auto) 0.0 L (2-4) % Baso % (Auto) 0.2 (0-2) % Neut # (Auto) 5300 (1576-0106) /uL Lymph # (Auto) 700 L (4592-7397) /uL Alfalfa # (Auto) 400 (0-900) /uL Eos # (Auto) 0 (0-450) /uL Baso # (Auto) 0 (0-100) /uL PT 13.4 H (10.1-12.7) SECONDS INR 1.2 (0.9-1.3) Sodium (137-145) mmol/L Potassium (3.4-5.1) mmol/L Chloride (98-107) mmol/L Carbon Dioxide (22-32) mmol/L BUN (9-20) mg/dL Creatinine (0.66-1.25) mg/dL Estimated GFR (>60) mL/min BUN/Creatinine Ratio (6-22) Glucose (80-110) mg/dL Calcium (8.4-10.2) mg/dL Total Bilirubin (0.2-1.3) mg/dL AST (17-59) IU/L ALT (<50) IU/L Alkaline Phosphatase (38-126) U/L Total Protein (6.3-8.2) g/dL Albumin (3.5-5.0) g/dL Globulin (1.7-4.1) g/dL Albumin/Globulin Ratio (1.0-2.8) Urine Color Red Urine Appearance Turbid Urine pH 7.0 (4.5-8.0) Ur Specific [place] 1.015 (1.000-1.035) Urine Protein 3+ H (Negative) Urine Glucose (UA) Trace H (Negative) g/dL Urine Ketones Negative (NEGATIVE) Urine Occult Blood 3+ H (Negative) Urine Nitrate Negative (Negative) Urine Bilirubin Negative (NEGATIVE) Urine Urobilinogen 0.2 (0.2) E.U./dL Ur Leukocyte Esterase Trace H (NEGATIVE) Urine RBC >100/hpf H (0-5/HPF) Urine WBC None seen (0-5/HPF) Ur Squamous Epith Cells None seen (0-5/HPF) Urine Bacteria None seen (None) Ur Culture Indicated? Cult not indicated SARS-CoV-2 (PCR) (Negative) Blood Type Antibody Screen 12/25/20 12/25/20 12/25/20 Range/Units 17:28 19:24 19:41 WBC (4.5-11.0) X10^3/uL RBC (4.5-5.9) X10^6/uL Hgb 12.0 L (13.5-17.5) g/dL Hct 36.1 L (41-53) % MCV (80-100) fL MCH (26-34) PG MCHC (30-36) % RDW (11.6-14.8) % Plt Count (150-400) X10^3/uL Neut % (Auto) (50-75) % Lymph % (Auto) (25-40) % Alfalfa % (Auto) (3-14) % Eos % (Auto) (2-4) % Baso % (Auto) (0-2) % Neut # (Auto) (8639-7287) /uL Lymph # (Auto) (3030-0424) /uL Alfalfa # (Auto) (0-900) /uL Eos # (Auto) (0-450) /uL Baso # (Auto) (0-100) /uL PT (10.1-12.7) SECONDS INR (0.9-1.3) Sodium 136 L (137-145) mmol/L Potassium 5.1 (3.4-5.1) mmol/L Chloride 105 (98-107) mmol/L Carbon Dioxide 19 L (22-32) mmol/L BUN 34 H (9-20) mg/dL Creatinine 1.56 H (0.66-1.25) mg/dL Estimated GFR 42.7 L (>60) mL/min BUN/Creatinine Ratio 21.8 (6-22) Glucose 125 H (80-110) mg/dL Calcium 10.4 H (8.4-10.2) mg/dL Total Bilirubin 0.3 (0.2-1.3) mg/dL AST 24 (17-59) IU/L ALT 13 (<50) IU/L Alkaline Phosphatase 58 (38-126) U/L Total Protein 7.5 (6.3-8.2) g/dL Albumin 4.5 (3.5-5.0) g/dL Globulin 3.0 (1.7-4.1) g/dL Albumin/Globulin Ratio 1.5 (1.0-2.8) Urine Color Urine Appearance Urine pH (4.5-8.0) Ur Specific [place] (1.000-1.035) Urine Protein (Negative) Urine Glucose (UA) (Negative) g/dL Urine Ketones (NEGATIVE) Urine Occult Blood (Negative) Urine Nitrate (Negative) Urine Bilirubin (NEGATIVE) Urine Urobilinogen (0.2) E.U./dL Ur Leukocyte Esterase (NEGATIVE) Urine RBC (0-5/HPF) Urine WBC (0-5/HPF) Ur Squamous Epith Cells (0-5/HPF) Urine Bacteria (None) Ur Culture Indicated? SARS-CoV-2 (PCR) Negative (Negative) Blood Type Antibody Screen 12/25/20 12/25/20 12/25/20 Range/Units 19:41 19:45 23:30 WBC (4.5-11.0) X10^3/uL RBC (4.5-5.9) X10^6/uL Hgb 11.4 L (13.5-17.5) g/dL Hct 35.0 L (41-53) % MCV (80-100) fL MCH (26-34) PG MCHC (30-36) % RDW (11.6-14.8) % Plt Count (150-400) X10^3/uL Neut % (Auto) (50-75) % Lymph % (Auto) (25-40) % Alfalfa % (Auto) (3-14) % Eos % (Auto) (2-4) % Baso % (Auto) (0-2) % Neut # (Auto) (1102-3687) /uL Lymph # (Auto) (3272-0336) /uL Alfalfa # (Auto) (0-900) /uL Eos # (Auto) (0-450) /uL Baso # (Auto) (0-100) /uL PT (10.1-12.7) SECONDS INR (0.9-1.3) Sodium (137-145) mmol/L Potassium (3.4-5.1) mmol/L Chloride (98-107) mmol/L Carbon Dioxide (22-32) mmol/L BUN (9-20) mg/dL Creatinine 1.41 H (0.66-1.25) mg/dL Estimated GFR 48.0 L (>60) mL/min BUN/Creatinine Ratio (6-22) Glucose (80-110) mg/dL Calcium (8.4-10.2) mg/dL Total Bilirubin (0.2-1.3) mg/dL AST (17-59) IU/L ALT (<50) IU/L Alkaline Phosphatase (38-126) U/L Total Protein (6.3-8.2) g/dL Albumin (3.5-5.0) g/dL Globulin (1.7-4.1) g/dL Albumin/Globulin Ratio (1.0-2.8) Urine Color Urine Appearance Urine pH (4.5-8.0) Ur Specific [place] (1.000-1.035) Urine Protein (Negative) Urine Glucose (UA) (Negative) g/dL Urine Ketones (NEGATIVE) Urine Occult Blood (Negative) Urine Nitrate (Negative) Urine Bilirubin (NEGATIVE) Urine Urobilinogen (0.2) E.U./dL Ur Leukocyte Esterase (NEGATIVE) Urine RBC (0-5/HPF) Urine WBC (0-5/HPF) Ur Squamous Epith Cells (0-5/HPF) Urine Bacteria (None) Ur Culture Indicated? SARS-CoV-2 (PCR) (Negative) Blood Type A Positive Antibody Screen Negative 12/26/20 12/26/20 Range/Units 15:15 15:15 WBC 7.2 (4.5-11.0) X10^3/uL RBC 3.85 L (4.5-5.9) X10^6/uL Hgb 11.7 L (13.5-17.5) g/dL Hct 35.9 L (41-53) % MCV 93.3 (80-100) fL MCH 30.4 (26-34) PG MCHC 32.6 (30-36) % RDW 15.8 H (11.6-14.8) % Plt Count 280 (150-400) X10^3/uL Neut % (Auto) 78.3 H (50-75) % Lymph % (Auto) 12.3 L (25-40) % Alfalfa % (Auto) 9.2 (3-14) % Eos % (Auto) 0.0 L (2-4) % Baso % (Auto) 0.2 (0-2) % Neut # (Auto) 5600 (5762-1173) /uL Lymph # (Auto) 900 L (0835-3710) /uL [place]alfa # (Auto) 700 (0-900) /uL Eos # (Auto) 0 (0-450) /uL Baso # (Auto) 0 (0-100) /uL PT (10.1-12.7) SECONDS INR (0.9-1.3) Sodium 136 L (137-145) mmol/L Potassium 4.5 (3.4-5.1) mmol/L Chloride 105 (98-107) mmol/L Carbon Dioxide 23 (22-32) mmol/L BUN 32 H (9-20) mg/dL Creatinine 1.40 H (0.66-1.25) mg/dL Estimated GFR 48.4 L (>60) mL/min BUN/Creatinine Ratio 22.9 H (6-22) Glucose 119 H (80-110) mg/dL Calcium 10.8 H (8.4-10.2) mg/dL Total Bilirubin (0.2-1.3) mg/dL AST (17-59) IU/L ALT (<50) IU/L Alkaline Phosphatase (38-126) U/L Total Protein (6.3-8.2) g/dL Albumin (3.5-5.0) g/dL Globulin (1.7-4.1) g/dL Albumin/Globulin Ratio (1.0-2.8) Urine Color Urine Appearance Urine pH (4.5-8.0) Ur Specific [place] (1.000-1.035) Urine Protein (Negative) Urine Glucose (UA) (Negative) g/dL Urine Ketones (NEGATIVE) Urine Occult Blood (Negative) Urine Nitrate (Negative) Urine Bilirubin (NEGATIVE) Urine Urobilinogen (0.2) E.U./dL Ur Leukocyte Esterase (NEGATIVE) Urine RBC (0-5/HPF) Urine WBC (0-5/HPF) Ur Squamous Epith Cells (0-5/HPF) Urine Bacteria (None) Ur Culture Indicated? SARS-CoV-2 (PCR) (Negative) Blood Type Antibody Screen MDM Narrative Medical decision making narrative: Dr norwood: Received turned over. Reviewed patient's history and physical exam. Patient has remained stable overnight. Repeat hemoglobin hematocrit are unchanged. He has been receiving continuous bladder irrigation and the blood seems to have improved somewhat. Will continue to await bed placement. Care turned over to day provider to disposition. <Anna Ríos, DO - Last Filed: 12/26/20 19:07> Lab Data Attestation: I reviewed the patient's lab results. Labs: Lab Results 12/25/20 12/25/20 12/25/20 Range/Units 17:28 17:28 17:28 WBC 6.5 (4.5-11.0) X10^3/uL RBC 3.89 L (4.5-5.9) X10^6/uL Hgb 11.8 L (13.5-17.5) g/dL Hct 36.1 L (41-53) % MCV 92.8 (80-100) fL MCH 30.4 (26-34) PG MCHC 32.8 (30-36) % RDW 15.5 H (11.6-14.8) % Plt Count 267 (150-400) X10^3/uL Neut % (Auto) 81.8 H (50-75) % Lymph % (Auto) 11.4 L (25-40) % [place]alfa % (Auto) 6.6 (3-14) % Eos % (Auto) 0.0 L (2-4) % Baso % (Auto) 0.2 (0-2) % Neut # (Auto) 5300 (0109-0063) /uL Lymph # (Auto) 700 L (0901-8407) /uL [place] # (Auto) 400 (0-900) /uL Eos # (Auto) 0 (0-450) /uL Baso # (Auto) 0 (0-100) /uL PT 13.4 H (10.1-12.7) SECONDS INR 1.2 (0.9-1.3) Sodium (137-145) mmol/L Potassium (3.4-5.1) mmol/L Chloride (98-107) mmol/L Carbon Dioxide (22-32) mmol/L BUN (9-20) mg/dL Creatinine (0.66-1.25) mg/dL Estimated GFR (>60) mL/min BUN/Creatinine Ratio (6-22) Glucose (80-110) mg/dL Calcium (8.4-10.2) mg/dL Total Bilirubin (0.2-1.3) mg/dL AST (17-59) IU/L ALT (<50) IU/L Alkaline Phosphatase (38-126) U/L Total Protein (6.3-8.2) g/dL Albumin (3.5-5.0) g/dL Globulin (1.7-4.1) g/dL Albumin/Globulin Ratio (1.0-2.8) Urine Color Red Urine Appearance Turbid Urine pH 7.0 (4.5-8.0) Ur Specific [place] 1.015 (1.000-1.035) Urine Protein 3+ H (Negative) Urine Glucose (UA) Trace H (Negative) g/dL Urine Ketones Negative (NEGATIVE) Urine Occult Blood 3+ H (Negative) Urine Nitrate Negative (Negative) Urine Bilirubin Negative (NEGATIVE) Urine Urobilinogen 0.2 (0.2) E.U./dL Ur Leukocyte Esterase Trace H (NEGATIVE) Urine RBC >100/hpf H (0-5/HPF) Urine WBC None seen (0-5/HPF) Ur Squamous Epith Cells None seen (0-5/HPF) Urine Bacteria None seen (None) Ur Culture Indicated? Cult not indicated SARS-CoV-2 (PCR) (Negative) Blood Type Antibody Screen 12/25/20 12/25/20 12/25/20 Range/Units 17:28 19:24 19:41 WBC (4.5-11.0) X10^3/uL RBC (4.5-5.9) X10^6/uL Hgb 12.0 L (13.5-17.5) g/dL Hct 36.1 L (41-53) % MCV (80-100) fL MCH (26-34) PG MCHC (30-36) % RDW (11.6-14.8) % Plt Count (150-400) X10^3/uL Neut % (Auto) (50-75) % Lymph % (Auto) (25-40) % [place]falfa % (Auto) (3-14) % Eos % (Auto) (2-4) % Baso % (Auto) (0-2) % Neut # (Auto) (7377-8142) /uL Lymph # (Auto) (7242-1588) /uL [place] # (Auto) (0-900) /uL Eos # (Auto) (0-450) /uL Baso # (Auto) (0-100) /uL PT (10.1-12.7) SECONDS INR (0.9-1.3) Sodium 136 L (137-145) mmol/L Potassium 5.1 (3.4-5.1) mmol/L Chloride 105 (98-107) mmol/L Carbon Dioxide 19 L (22-32) mmol/L BUN 34 H (9-20) mg/dL Creatinine 1.56 H (0.66-1.25) mg/dL Estimated GFR 42.7 L (>60) mL/min BUN/Creatinine Ratio 21.8 (6-22) Glucose 125 H (80-110) mg/dL Calcium 10.4 H (8.4-10.2) mg/dL Total Bilirubin 0.3 (0.2-1.3) mg/dL AST 24 (17-59) IU/L ALT 13 (<50) IU/L Alkaline Phosphatase 58 (38-126) U/L Total Protein 7.5 (6.3-8.2) g/dL Albumin 4.5 (3.5-5.0) g/dL Globulin 3.0 (1.7-4.1) g/dL Albumin/Globulin Ratio 1.5 (1.0-2.8) Urine Color Urine Appearance Urine pH (4.5-8.0) Ur Specific [place] (1.000-1.035) Urine Protein (Negative) Urine Glucose (UA) (Negative) g/dL Urine Ketones (NEGATIVE) Urine Occult Blood (Negative) Urine Nitrate (Negative) Urine Bilirubin (NEGATIVE) Urine Urobilinogen (0.2) E.U./dL Ur Leukocyte Esterase (NEGATIVE) Urine RBC (0-5/HPF) Urine WBC (0-5/HPF) Ur Squamous Epith Cells (0-5/HPF) Urine Bacteria (None) Ur Culture Indicated? SARS-CoV-2 (PCR) Negative (Negative) Blood Type Antibody Screen 12/25/20 12/25/20 12/25/20 Range/Units 19:41 19:45 23:30 WBC (4.5-11.0) X10^3/uL RBC (4.5-5.9) X10^6/uL Hgb 11.4 L (13.5-17.5) g/dL Hct 35.0 L (41-53) % MCV (80-100) fL MCH (26-34) PG MCHC (30-36) % RDW (11.6-14.8) % Plt Count (150-400) X10^3/uL Neut % (Auto) (50-75) % Lymph % (Auto) (25-40) % [place]alf[place] % (Auto) (3-14) % Eos % (Auto) (2-4) % Baso % (Auto) (0-2) % Neut # (Auto) (8266-3102) /uL Lymph # (Auto) (3585-4347) /uL [place] # (Auto) (0-900) /uL Eos # (Auto) (0-450) /uL Baso # (Auto) (0-100) /uL PT (10.1-12.7) SECONDS INR (0.9-1.3) Sodium (137-145) mmol/L Potassium (3.4-5.1) mmol/L Chloride (98-107) mmol/L Carbon Dioxide (22-32) mmol/L BUN (9-20) mg/dL Creatinine 1.41 H (0.66-1.25) mg/dL Estimated GFR 48.0 L (>60) mL/min BUN/Creatinine Ratio (6-22) Glucose (80-110) mg/dL Calcium (8.4-10.2) mg/dL Total Bilirubin (0.2-1.3) mg/dL AST (17-59) IU/L ALT (<50) IU/L Alkaline Phosphatase (38-126) U/L Total Protein (6.3-8.2) g/dL Albumin (3.5-5.0) g/dL Globulin (1.7-4.1) g/dL Albumin/Globulin Ratio (1.0-2.8) Urine Color Urine Appearance Urine pH (4.5-8.0) Ur Specific [place] (1.000-1.035) Urine Protein (Negative) Urine Glucose (UA) (Negative) g/dL Urine Ketones (NEGATIVE) Urine Occult Blood (Negative) Urine Nitrate (Negative) Urine Bilirubin (NEGATIVE) Urine Urobilinogen (0.2) E.U./dL Ur Leukocyte Esterase (NEGATIVE) Urine RBC (0-5/HPF) Urine WBC (0-5/HPF) Ur Squamous Epith Cells (0-5/HPF) Urine Bacteria (None) Ur Culture Indicated? SARS-CoV-2 (PCR) (Negative) Blood Type A Positive Antibody Screen Negative 12/26/20 12/26/20 Range/Units 15:15 15:15 WBC 7.2 (4.5-11.0) X10^3/uL RBC 3.85 L (4.5-5.9) X10^6/uL Hgb 11.7 L (13.5-17.5) g/dL Hct 35.9 L (41-53) % MCV 93.3 (80-100) fL MCH 30.4 (26-34) PG MCHC 32.6 (30-36) % RDW 15.8 H (11.6-14.8) % Plt Count 280 (150-400) X10^3/uL Neut % (Auto) 78.3 H (50-75) % Lymph % (Auto) 12.3 L (25-40) % [place]alf[place] % (Auto) 9.2 (3-14) % Eos % (Auto) 0.0 L (2-4) % Baso % (Auto) 0.2 (0-2) % Neut # (Auto) 5600 (3459-8305) /uL Lymph # (Auto) 900 L (9437-4583) /uL [place] # (Auto) 700 (0-900) /uL Eos # (Auto) 0 (0-450) /uL Baso # (Auto) 0 (0-100) /uL PT (10.1-12.7) SECONDS INR (0.9-1.3) Sodium 136 L (137-145) mmol/L Potassium 4.5 (3.4-5.1) mmol/L Chloride 105 (98-107) mmol/L Carbon Dioxide 23 (22-32) mmol/L BUN 32 H (9-20) mg/dL Creatinine 1.40 H (0.66-1.25) mg/dL Estimated GFR 48.4 L (>60) mL/min BUN/Creatinine Ratio 22.9 H (6-22) Glucose 119 H (80-110) mg/dL Calcium 10.8 H (8.4-10.2) mg/dL Total Bilirubin (0.2-1.3) mg/dL AST (17-59) IU/L ALT (<50) IU/L Alkaline Phosphatase (38-126) U/L Total Protein (6.3-8.2) g/dL Albumin (3.5-5.0) g/dL Globulin (1.7-4.1) g/dL Albumin/Globulin Ratio (1.0-2.8) Urine Color Urine Appearance Urine pH (4.5-8.0) Ur Specific [place] (1.000-1.035) Urine Protein (Negative) Urine Glucose (UA) (Negative) g/dL Urine Ketones (NEGATIVE) Urine Occult Blood (Negative) Urine Nitrate (Negative) Urine Bilirubin (NEGATIVE) Urine Urobilinogen (0.2) E.U./dL Ur Leukocyte Esterase (NEGATIVE) Urine RBC (0-5/HPF) Urine WBC (0-5/HPF) Ur Squamous Epith Cells (0-5/HPF) Urine Bacteria (None) Ur Culture Indicated? SARS-CoV-2 (PCR) (Negative) Blood Type Antibody Screen MDM Narrative Medical decision making narrative: 85-year-old male with urinary retention and gross hematuria after Jones catheter placement he was seen and re-evaluated by myself. 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 Patient has worsening renal function, hematuria which shows a drop of hemoglobin from 13-11 from October until today although it is stable here in the department overnight while patient was being watched until he could be transferred. Case was discussed with our local urologist who felt patient needed Interventional Radiology in addition to Urology. We do not that available on decision was made to transfer. Dr. Odom spoke with urology at [facility] or waiting for bed assignment which was ultimately obtained the following day and I spoke with Dr. Gonzalez who accepts for transfer. Attempts were made at multiple facilities including [facility], [facility] and . Patient was stable in the department throughout his stay. Discharge Plan Departure Patient Disposition: [facility] Clinical Impression: Acute urinary retention, Acute unilateral obstructive uropathy, Bladder mass Hematuria Qualifiers: Hematuria type: gross Qualified Code(s): R31.0 - Gross hematuria Prescriptions: No Action multivitamin,[id number] [Complete Multivitamin] tablet 1 tab PO DAILY RF: 0 aspirin [Adult Aspirin Regimen] 81 mg tablet,delayed release (DR/EC) 162 mg PO DAILY RF: 0 omega 5-pxl-fqt-fish oil 1,200 (144-216) mg capsule PO RF: 0 glucosamine HCl 1,500 mg tablet 1,500 mg PO DAILY RF: 0 cholecalciferol (vitamin D3) 2,000 unit capsule 2,000 unit PO DAILY RF: 0 mecobalamin (vitamin B12) 1,000 mcg tablet,disintegrating 1,000 mcg SL DAILY RF: 0 coQ10 liquid 10 ml PO DAILY RF: 0 simvastatin 20 MG tablet 20 mg PO Q DAY Qty: 0 RF: 0 allopurinol 300 mg tablet 300 mg PO Q DAY Qty: 30 RF: 6 lisinopril 40 mg tablet 40 mg PO QDAY Qty: 30 RF: 1 Referrals: Danielle Steele ARNP [Primary Care Provider] -
--- NOTE | 2020-12-25 17:34 | DI.CT.S_ITS ---
PROCEDURE: CT ABDOMEN PELVIS WO/W CON INDICATIONS: significant hematuria TECHNIQUE: After the administration of oral contrast, 5 mm thick sections acquired from the diaphragms to the iliac crests. After the administration of intravenous contrast, 5 mm thick sections acquired from the diaphragms to the symphysis. 5 mm thick coronal and sagittal reformats were acquired. For radiation dose reduction, the following was used: automated exposure control, adjustment of mA and/or kV according to patient size. COMPARISON: None. FINDINGS: Image quality: Excellent. ABDOMEN: Lung bases: Scattered fibrotic changes at the posterior lung bases. Heavy coronary artery calcification.. Heart size is normal. Solid organs: Moderate left hydronephrosis and diffuse, tortuous left hydroureter. No left intrarenal calculi or significant perinephric inflammation. Mild right hydronephrosis and minor distal hydroureter. There is a finally septated right renal cyst in the lower pole of the right kidney. This measures about 3.1 cm. Postcontrast, there is no excretion of IV contrast seen from the left kidney. Mild , slightly decreased homogeneous enhancement of the left renal parenchyma. Scattered subcentimeter hypodensities throughout the liver. The right lobe of the liver is elongated. Several small parenchymal calcifications are seen throughout the pancreas. No ductal dilatation. The gallbladder and biliary tree are normal. The adrenal glands demonstrate nodular thickening bilaterally without dominant mass. Spleen is normal. Bowel and peritoneum: Stomach, small and large bowel loops are normal in caliber and wall thickness. Sigmoid diverticulosis. No free fluid or air. Nodes and vessels: No retroperitoneal or mesenteric adenopathy by size criteria. Aorta and inferior vena are normal in caliber. Heavy abdominal aortic atherosclerotic calcification. Miscellaneous: Tiny fat containing umbilical hernia. PELVIS: Genitourinary: The urinary bladder is mildly distended and there is a large hyperdense intraluminal mass adjacent to Jones catheter balloon. This measures roughly 7.4 x 4.9 x 6.3 cm. Along the left aspect of the urinary bladder and obstructing the left ureterovesicular junction, there is irregular, enhancing wall thickening suspicious for mass.. Miscellaneous: There is a peripherally calcified involuting cystic mass in the right adnexa measuring 5.6 by 3.7 cm, previously 8.6 by 5.7 cm in the remote past. No inguinal hernias or adenopathy. Fat containing suprapubic hernia. Bones: No suspicious bony lesions. Diffuse osteopenia. Spondylosis at L5-S1 and bridging osteophytosis throughout the spine. No vertebral body compression fractures. IMPRESSION: 1. Diffuse thickening of the left urinary bladder wall obstructing left ureterovesicular junction is suspicious for carcinoma. There is a large adjacent hematoma in the urinary bladder as well as a Jones catheter. 2. There is asymmetric, absence of excretion of contrast from the left kidney suggesting significant delay in function as well as chronic left hydroureteronephrosis. This is likely due to obstructing distal mass causing decreased renal function. 3. 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 4. No visible adenopathy. 5. Findings of chronic pancreatitis. 6. Heavy coronary artery calcification. Dictated by: Paula Moncada M.D. on 12/25/2020 at 18:49 Approved by: Paula Moncada M.D. on 12/25/2020 at 19:02
--- NOTE | 2020-12-25 17:35 | PC.NURSE ---
Pt states low abd pressure / pain has resolved w/ catheter placement.
[2020-12-25 17:41] LABS: Bacteria Urine None Seen; WBC Urine None Seen (0-5/HPF)
[2020-12-25 17:44] LABS: Add Manual Diff / Slide Review NO; Basophils Absolute Auto 0 /uL (0-100); Basophils Percent Auto 0.2 % (0-2); Eosinophils Absolute Auto 0 /uL (0-450); Hematocrit 36.1 % (41-53); Hemoglobin 11.8 g/dL (13.5-17.5); Lymphocytes Absolute Auto 700 /uL (1100-4500); Lymphocytes Percent Auto 11.4 % (25-40); Mean Corpuscular HGB Conc 32.8 % (30-36); Mean Corpuscular Hemoglobin 30.4 PG (26-34); Mean Corpuscular Volume 92.8 fL (80-100); Monocytes Absolute Auto 400 /uL (0-900); Monocytes Percent Auto 6.6 % (3-14); Neutrophils Absolute Auto 5300 /uL (1500-7000); Neutrophils Percent Auto 81.8 % (50-75); Platelet Count 267 X10^3/uL (150-400); Red Blood Cell Count 3.89 X10^6/uL (4.5-5.9); Red Cell Distribution Width 15.5 % (11.6-14.8); White Blood Cell Count 6.5 X10^3/uL (4.5-11.0)
[2020-12-25 17:52] LABS: Appearance Urine UA TURBID; Bilirubin Urine UA NEGATIVE (NEGATIVE); Color Urine UA RED; Glucose Urine UA TRACE g/dL (Negative); Ketones Urine UA NEGATIVE (NEGATIVE); Leukocyte Esterase Urine UA TRACE (NEGATIVE); Nitrite Urine UA NEGATIVE (Negative); Occult Blood Urine UA 3+ (Negative); Protein Urine UA 3+ (Negative); Specific Gravity Urine UA 1.015 (1.000-1.035); Urobilinogen Urine UA 0.2 E.U./dL (0.2)
[2020-12-25 18:00] LABS: INR 1.2 (0.9-1.3); Prothrombin Time 13.4 SECONDS (10.1-12.7)
[2020-12-25 18:04] LABS: Alanine Aminotransferase 13 IU/L (<50); Albumin 4.5 g/dL (3.5-5.0); Albumin Globulin Ratio 1.5 (1.0-2.8); Alkaline Phosphatase 58 U/L (38-126); Aspartate Aminotransferase 24 IU/L (17-59); BUN Creatinine Ratio 21.8 (6-22); Bilirubin Total 0.3 mg/dL (0.2-1.3); Blood Urea Nitrogen 34 mg/dL (9-20); Calcium 10.4 mg/dL (8.4-10.2); Carbon Dioxide 19 mmol/L (22-32); Chloride 105 mmol/L (98-107); Estimated Glomerular Filt Rate 42.7 mL/min (>60); Glucose 125 mg/dL (80-110); HEMOLYSIS 21 (0-50); Potassium 5.1 mmol/L (3.4-5.1); Sodium 136 mmol/L (137-145); Total Protein 7.5 g/dL (6.3-8.2)
[2020-12-25 18:11] LABS: Culture Indicated Urine Cult Not Indicated; RBC Urine >100/HPF (0-5/HPF); Squamous Epithelial Cell Urine None Seen (0-5/HPF)
--- NOTE | 2020-12-25 18:53 | PC.NURSE ---
Pt to ED for c/o urinary retention and 'dribling' bloody urine. States this has happened in the past but he usually has 'drank a lot of cranberry juice and it got better- not this time'. Pt noted to have been incontinent of large amount of bloody urine. states he didn't know this had occurred.
--- NOTE | 2020-12-25 19:03 | PC.NURSE ---
started irrigation w/ sluggish slow as well as noted large clots in sam[place]. Hand irrigated for large amounts of clots. Irrigation currently flowing w/o difficulty. Pt has call [facility] and will call if he begins to feel as if his bladder is not draining.
[2020-12-25 19:48] LABS: Hematocrit 36.1 % (41-53)
[2020-12-25 20:29] LABS: COVID19 - ADMIT (NP swab/PCR) Negative (Negative)
[2020-12-25] MEDS: HYDROMORPHONE 1 MG INJ ×2 (20:35→23:08)
[2020-12-25] MEDS: SODIUM CHLORIDE IRRIG SOLUTION 3,000 ML 3000 ML IRR ×2 (21:43→23:05)
[2020-12-25 23:47] LABS: Hemoglobin 11.4 g/dL (13.5-17.5)
[2020-12-26] VITALS (51 sets, daily range): BP systolic 98–184; BP diastolic 56–85; PULSE 56–80; RESP 17–18; O2SAT 94–100
[2020-12-26] MEDS: SODIUM CHLORIDE IRRIG SOLUTION 3,000 ML 3000 ML IRR ×3 (00:12→04:28)
[2020-12-26] MEDS: MELATONIN 3 MG TABLET 9 MG PO (00:56)
--- NOTE | 2020-12-26 08:37 | PC.NURSE ---
hung new cbi bag monitoring q25 mins and measuring output
[2020-12-26 15:23] LABS: Add Manual Diff / Slide Review NO; Basophils Absolute Auto 0 /uL (0-100); Basophils Percent Auto 0.2 % (0-2); Eosinophils Absolute Auto 0 /uL (0-450); Hematocrit 35.9 % (41-53); Hemoglobin 11.7 g/dL (13.5-17.5); Lymphocytes Absolute Auto 900 /uL (1100-4500); Lymphocytes Percent Auto 12.3 % (25-40); Mean Corpuscular HGB Conc 32.6 % (30-36); Mean Corpuscular Hemoglobin 30.4 PG (26-34); Mean Corpuscular Volume 93.3 fL (80-100); Monocytes Absolute Auto 700 /uL (0-900); Monocytes Percent Auto 9.2 % (3-14); Neutrophils Absolute Auto 5600 /uL (1500-7000); Neutrophils Percent Auto 78.3 % (50-75); Platelet Count 280 X10^3/uL (150-400); Red Blood Cell Count 3.85 X10^6/uL (4.5-5.9); Red Cell Distribution Width 15.8 % (11.6-14.8); White Blood Cell Count 7.2 X10^3/uL (4.5-11.0)
--- NOTE | 2020-12-26 15:25 | PC.NURSE ---
Notified Dr Michoacano barbosa is becoming more bloody and opaque, Order received for labwork.
[2020-12-26 15:34] LABS: BUN Creatinine Ratio 22.9 (6-22); Blood Urea Nitrogen 32 mg/dL (9-20); Calcium 10.8 mg/dL (8.4-10.2); Carbon Dioxide 23 mmol/L (22-32); Chloride 105 mmol/L (98-107); Estimated Glomerular Filt Rate 48.4 mL/min (>60); Glucose 119 mg/dL (80-110); HEMOLYSIS < 15 (0-50); Potassium 4.5 mmol/L (3.4-5.1); Sodium 136 mmol/L (137-145)
== END 2020-12-26 16:55 | disposition short-term general hospital (02) ==
PROVIDERS: Emergency Medicine; Emergency Provider Emergency Medicine; Family Provider Nurse Practitioner; PCP Nurse Practitioner
DX: N13.9 Obstructive and reflux uropathy, unspecified (principal); R31.0 Gross hematuria; R33.8 Other retention of urine; N32.89 Other specified disorders of bladder; Z20.822 Contact with and (suspected) exposure to COVID-19
CPT/HCPCS: 36415; 51701; 74178; 80048; 80053; 81001; 82565; 85014; 85018; 85025; 85610; 86850; 86900; 86901; 87635; 96374; 96376; 99284; 99285; C9803; J1170; Q9967

== ENCOUNTER 2021-03-11 08:10 | Emergency (ER) | payer MEDICARE, OTHER, SELFPAY ==
[2021-03-11 08:33] VITALS: PULSE 78; O2SAT 99
[2021-03-11 08:38] VITALS: BP 183/83; PULSE 82; RESP 19; TEMP 36.3; O2SAT 99; BMI 37.3
--- NOTE | 2021-03-11 08:45 | ED_ITS ---
HPI - Male Genitourinary General Chief complaint: Urogenital-Male Stated complaint: needs cath Time Seen by Provider: 03/11/21 08:44 Source: patient Mode of arrival: Family Vehicle Limitations: no limitations History of Present Illness HPI Narrative: This is an 85-year-old male who comes to the emergency department with complaint of decreased urine output. Patient states he has not really been urinating much the last couple weeks. He has also been developing some lower suprapubic pain. Patient states he has known bladder cancer he was seen in December of 2020 transferred to [facility] he is unsure if he had a stent placed or not. Patient states he was seen by Oncology who encouraged treatment but he deferred and states he wanted to let ?nature take its course?. He states he thought that would be pretty miserable to go through all the chemo and radiation. He comes today because he feels like he needs to urinate and can not. He states he has been making urine and small amounts which has been clear. He denies any fevers or chills. No chest pain or shortness of breath. Besides suprapubic pain he denies any other abdominal pain, no back flank pain. He states he has been stooling regularly. Patient is quite reluctant to allow me to do any lab work and once the catheter only. Bladder scan showed only 18 mL which patient does not quite understand that placing a catheter at this time would not necessarily be beneficial. After long discussion patient is agreeable to labs as I suspect he is in renal failure. Related Data Home Medications Medication Instructions Recorded Confirmed simvastatin 20 mg tablet 20 mg PO Q DAY #0 04/29/17 aspirin 81 mg tablet,delayed 162 mg PO DAILY 03/26/18 03/26/18 release (Adult Aspirin Regimen) cholecalciferol (vitamin D3) 50 2,000 unit PO DAILY 03/26/18 03/26/18 mcg (2,000 unit) capsule coQ10 10 ml PO DAILY 03/26/18 03/26/18 glucosamine HCl 1,500 mg tablet 1,500 mg PO DAILY 03/26/18 03/26/18 mecobalamin (vitamin B12) 1,000 1,000 mcg SL DAILY 03/26/18 03/26/18 mcg disintegrating tablet,sublingual multivitamin,ww-jvbj-xmqrygll 1 tab PO DAILY 03/26/18 03/26/18 (Complete Multivitamin) omega 9-nil-kdw-fish oil 1,200 mg cap PO cap 03/26/18 03/26/18 (144 mg-216 mg) capsule Previous Rx's Medication Instructions Recorded allopurinol 300 mg tablet 300 mg PO Q DAY #30 tab 04/14/18 lisinopril 40 mg tablet 40 mg PO QDAY #30 tab 11/23/18 Allergies Allergy/AdvReac Type Severity Reaction Status Date / Time Penicillins Allergy Verified 07/10/19 13:41 Review of Systems Review of Systems ROS Unobtainable: All systems reviewed & are unremarkable except as noted in HPI and below Patient History Medical History (Updated 03/11/21 @ 10:19 by Anna Ríos DO) Cataracts, bilateral (2012) Chickenpox (~194) Dupuytren's contracture of both hands (~2014) Eczema (~2004) Elevated PSA (2006) Hyperlipemia Hypertension Kidney stones (~1975) Low testosterone (2008) Measles (~1944) Mumps (~1944) Osteoarthritis (~2011) Prostate cancer (2007) Sleep apnea (2012) Surgical History History of cataract removal with insertion of prosthetic lens (2014) History of tonsillectomy (1939) Status post appendectomy (1974) Status post radical cystoprostatectomy (2007) Family History Father No problems noted. Mother Heart disease Social History Smoking Status: Never smoker alcohol intake: current Smoking Status: Never smoker alcohol intake frequency: a few times a week Alcohol type: wine Substance Use Type: does not use Exam Narrative Exam Narrative: GENERAL: Alert and oriented x three, male in mild distress. HEENT: Head normocephalic, atraumatic, EOMI, pupils reactive, face symmetric, moist mucous membranes NECK: Supple, full range of motion CARDIOVASCULAR: Regular rate and rhythm without murmurs, rubs or gallops. RESPIRATORY: Breath sounds equal bilaterally, no wheezes rales or rhonchi. ABDOMEN: Soft, nontender. Normoactive bowel sounds all 4 quadrants. No guarding or rebound, rigidity, no mass, non-distended. : No CVA tenderness EXTREMITIES: Normal range of motion, no clubbing or edema. Neurovascularly intact NEUROLOGICAL: Cranial nerves II through XII grossly intact. Moving all extremities SKIN: Warm, dry, no petechiae, no rashes or lesions. Initial Vital Signs Initial Vital Signs: Vital Signs Pulse Rate 78 03/11/21 08:33 Pulse Oximetry 99 03/11/21 08:33 Course Orders Ordered: ED Orders 03/11/21 10:30 Urinalysis and Microscopic Stat Urine Culture Stat Reevaluation(s) Reevaluation #1: Patient's labs show a creatinine at 10 with elevated potassium in the 7 range. Patient is adamant that he does not want any intervention. He would like to return home. He would very much like a urinary catheter. We discussed that I do not expect that he will have much output but we can place it and it may be helpful during end of life for comfort. Patient defers any contact with social Work either today or as an outpatient call to help with home health care hospice. He does have a friend at bedside who is well acquainted and is going to contact his family. Patient does not wish for me to contact anyone else regarding his current situation. He and I did discuss that based on his labs his potassium would continue to climb and likely had days left to live although I could not give him an exact time frame. Patient is quite comfortable with this he was very upfront even initially on evaluation that he does not want much intervention and prefers to enjoy a bit short quality of life he has and is DNR/DNI, comfort measures only. Time: 10:19 Vital Signs Vital signs: Vital Signs - 8 hr 03/11/21 08:38 Temperature 97.4 F L Pulse Rate 82 Respiratory Rate 19 Blood Pressure 183/83 H Pulse Oximetry 99 MDM - Male Genitourinary Lab Data Result diagrams: 03/11/21 09:30 03/11/21 09:30 Labs: Lab Results 03/11/21 03/11/21 03/11/21 Range/Units 09:30 09:30 10:30 WBC 5.6 (4.5-11.0) X10^3/uL RBC 3.18 L (4.5-5.9) X10^6/uL Hgb 9.1 L (13.5-17.5) g/dL Hct 28.5 L (41-53) % MCV 89.6 (80-100) fL MCH 28.6 (26-34) PG MCHC 31.9 (30-36) % RDW 15.7 H (11.6-14.8) % Plt Count 325 (150-400) X10^3/uL Neut % (Auto) 76.2 H (50-75) % Lymph % (Auto) 12.4 L (25-40) % [place] % (Auto) 9.1 (3-14) % Eos % (Auto) 2.1 (2-4) % Baso % (Auto) 0.2 (0-2) % Neut # (Auto) 4300 (9778-6869) /uL Lymph # (Auto) 700 L (2806-3899) /uL [place] # (Auto) 500 (0-900) /uL Eos # (Auto) 100 (0-450) /uL Baso # (Auto) 0 (0-100) /uL Sodium 137 (137-145) mmol/L Potassium 7.3 H* (3.4-5.1) mmol/L Chloride 112 H (98-107) mmol/L Carbon Dioxide 9 L* (22-32) mmol/L BUN 104 H (9-20) mg/dL Creatinine 10.12 H* (0.66-1.25) mg/dL Estimated GFR 4.9 L (>60) mL/min BUN/Creatinine Ratio 10.3 (6-22) Glucose 114 H (80-110) mg/dL Calcium 9.6 (8.4-10.2) mg/dL Urine Color Urine Appearance Cloudy Urine pH 7.5 (4.5-8.0) Ur Specific [place] 1.010 (1.000-1.035) Urine Protein 3+ H (Negative) Urine Glucose (UA) Trace H (Negative) g/dL Urine Ketones Negative (NEGATIVE) Urine Occult Blood 3+ H (Negative) Urine Nitrate Negative (Negative) Urine Bilirubin Negative (NEGATIVE) Urine Urobilinogen 0.2 (0.2) E.U./dL Ur Leukocyte Esterase Trace H (NEGATIVE) Urine RBC >100/hpf H (0-5/HPF) Urine WBC 5-10/hpf H (0-5/HPF) Ur Squamous Epith Cells 1-5 /hpf (0-5/HPF) Urine Bacteria Many (>30) H (None) Ur Culture Indicated? Specimen cultured MDM Narrative Medical decision making narrative: This is an 85-year-old male who comes in with complaint of decreased urine output in the setting of a past diagnosis of bladder cancer in the past year. Patient likely had a ureteral stent placed at that time. He did see Oncology but deferred any intervention preferring to let nature take its course and enjoy his quality of life. Patient and I had long discussion he does not appear to be making much urine. He initially just want a urinary catheter placed but discussed that if he is in renal failure and not making her in this may not make him feel much better. Um he was open to labs for further evaluation of this and but did not wish to have any imaging. He is in acute renal failure with hyperkalemia. Patient does not wish to pursue treatment. He prefers to return home. He has a close family friend at bedside who I discussed this with also. And patient would very much like a urinary catheter placed. We discussed he will likely not have much output but it may be helpful for the small amount he does have in terms of making him more comfortable. Patient deferred any assistance from social Work for home health care or hospice in the short term and we discussed that exact time frame is on clear but if he left his renal failure untreated and his potassium continues to climb his heart will stop and he will . Patient is quite clear on this and is also quite comfortable with this situation. Patient was encouraged to return at any time if he would like to do so or if he needs any assistance in his management or care. Discharge Plan Departure Patient Disposition: Home Clinical Impression: Renal failure, Acute hyperkalemia Instructions: How to Care for Your Jones Catheter -- Male, DI for Kidney Failure Activity Restrictions/Additional Instructions: I appreciate you allowing me to be a part of your care today. Please touch base with your physician. There are options for home health care hospice if you are interested. You can call to talk to our social contact worker or your primary care physician. Your labs today show renal failure as well as an elevated potassium, this is likely secondary to your bladder cancer affecting your kidney's. I would stop your lisinopril (your blood pressure medication) as this can make kidney failure worse. I cannot tell you exactly how long you will live but your kidneys are not working and your potassium is high will continue to climb and will cause your heart to stop and you will . This will likely be in the next several days. Your welcome to return at any time especially if you are having any difficulty with symptoms or being comfortable at home. A catheter was placed today but I do not expect to see much urine draining. Prescriptions: No Action multivitamin,jj-qhea-flnfkpas [Complete Multivitamin] tablet 1 tab PO DAILY RF: 0 aspirin [Adult Aspirin Regimen] 81 mg tablet,delayed release (DR/EC) 162 mg PO DAILY RF: 0 omega 6-moi-ehy-fish oil 1,200 (144-216) mg capsule PO RF: 0 glucosamine HCl 1,500 mg tablet 1,500 mg PO DAILY RF: 0 cholecalciferol (vitamin D3) 2,000 unit capsule 2,000 unit PO DAILY RF: 0 mecobalamin (vitamin B12) 1,000 mcg tablet,disintegrating 1,000 mcg SL DAILY RF: 0 coQ10 liquid 10 ml PO DAILY RF: 0 simvastatin 20 MG tablet 20 mg PO Q DAY Qty: 0 RF: 0 allopurinol 300 mg tablet 300 mg PO Q DAY Qty: 30 RF: 6 lisinopril 40 mg tablet 40 mg PO QDAY Qty: 30 RF: 1 Referrals: Danielle Steele ARNP [Primary Care Provider] -
[2021-03-11 09:39] LABS: Add Manual Diff / Slide Review NO; Basophils Absolute Auto 0 /uL (0-100); Basophils Percent Auto 0.2 % (0-2); Eosinophils Absolute Auto 100 /uL (0-450); Eosinophils Percent Auto 2.1 % (2-4); Hematocrit 28.5 % (41-53); Hemoglobin 9.1 g/dL (13.5-17.5); Lymphocytes Absolute Auto 700 /uL (1100-4500); Lymphocytes Percent Auto 12.4 % (25-40); Mean Corpuscular HGB Conc 31.9 % (30-36); Mean Corpuscular Hemoglobin 28.6 PG (26-34); Mean Corpuscular Volume 89.6 fL (80-100); Monocytes Absolute Auto 500 /uL (0-900); Monocytes Percent Auto 9.1 % (3-14); Neutrophils Absolute Auto 4300 /uL (1500-7000); Neutrophils Percent Auto 76.2 % (50-75); Platelet Count 325 X10^3/uL (150-400); Red Blood Cell Count 3.18 X10^6/uL (4.5-5.9); Red Cell Distribution Width 15.7 % (11.6-14.8); White Blood Cell Count 5.6 X10^3/uL (4.5-11.0)
[2021-03-11 09:55] LABS: BUN Creatinine Ratio 10.3 (6-22); Blood Urea Nitrogen 104 mg/dL (9-20); Calcium 9.6 mg/dL (8.4-10.2); Chloride 112 mmol/L (98-107); Estimated Glomerular Filt Rate 4.9 mL/min (>60); Glucose 114 mg/dL (80-110); HEMOLYSIS < 15 (0-50); Sodium 137 mmol/L (137-145)
[2021-03-11 10:01] LABS: Carbon Dioxide 9 mmol/L (22-32); Potassium 7.3 mmol/L (3.4-5.1)
[2021-03-11 10:17] VITALS: BP 184/84; PULSE 81; O2SAT 99
[2021-03-11 10:30] VITALS: BP 169/78; PULSE 81; O2SAT 99
[2021-03-11 11:00] LABS: Appearance Urine UA CLOUDY; Bilirubin Urine UA NEGATIVE (NEGATIVE); Glucose Urine UA TRACE g/dL (Negative); Ketones Urine UA NEGATIVE (NEGATIVE); Leukocyte Esterase Urine UA TRACE (NEGATIVE); Nitrite Urine UA NEGATIVE (Negative); Occult Blood Urine UA 3+ (Negative); Protein Urine UA 3+ (Negative); Urobilinogen Urine UA 0.2 E.U./dL (0.2); pH Urine UA 7.5 (4.5-8.0)
[2021-03-11 11:18] LABS: Bacteria Urine Many (>30); Culture Indicated Urine Specimen Cultured; RBC Urine >100/HPF (0-5/HPF); Squamous Epithelial Cell Urine 1-5 /HPF (0-5/HPF); WBC Urine 5-10/HPF (0-5/HPF)
== END 2021-03-11 10:55 | disposition home or self-care (01) ==
PROVIDERS: Emergency Provider Emergency Medicine; Family Provider Nurse Practitioner; PCP Nurse Practitioner
DX: N19 Unspecified kidney failure (principal); E87.5 Hyperkalemia; R10.9 Unspecified abdominal pain; C67.9 Malignant neoplasm of bladder, unspecified
CPT/HCPCS: 36415; 51702; 51798; 80048; 81001; 85025; 87086; 99283

== ENCOUNTER 2021-03-12 17:16 | Emergency (ER) | payer MEDICARE, OTHER, SELFPAY ==
[2021-03-12 17:17] VITALS: BP 192/89; PULSE 95; RESP 16; TEMP 35.9; O2SAT 99; BMI 34.9
--- NOTE | 2021-03-12 17:39 | CM.SWNOTE ---
[employer] Note [employer] receives consult for patient regarding yesterday's ED visit for hospice referral. Patient presents to this ED on 03/12/21 and [employer] receives consult and enters room. Patient is 85 y/o male who presents to ED with concern for renal failure and pain. Present in room is patient's Shantel and son Mark. [employer] faxes Hospice referral to [facility] and calls referral center and leaves requesting return call. [employer] calls [facility] answering service in efforts to expedite response for services for patient and family. Patient endorses that he is at a pain level of 8 out of 10 and his pain is worse than yesterday, patient endorses pain all over. Patient endorses that he would like to sign a DNR POLST, ED provider Dr. Ríos fills out and signs POLST for patient. ED provider prescribes patient with pain medication for the next few days. Patient reports that he does not have a PCP. Plan: Patient to d/c home when medically clear, and [employer] to follow up with [facility] and family tomorrow to ensure hospice referral is in place. Maribell Schumacher MSW
[2021-03-12] MEDS: HYDROMORPHONE 1 MG INJ IM (17:44)
--- NOTE | 2021-03-12 17:51 | PC.NURSE ---
return visit for pain control and to get connected with hospice. Patient states he hurts all over. meeting with [facility] and Dr Ríos to set up hospice.
--- NOTE | 2021-03-12 18:15 | ED_ITS ---
HPI - General Adult General Chief complaint: Urogenital-Male Stated complaint: RENAL FAILURE LOT OF PAIN Time Seen by Provider: 03/12/21 17:45 Source: patient and family Mode of arrival: Wheelchair Limitations: no limitations History of Present Illness HPI narrative: This is an 85-year-old male who comes emergency department complaint of generalized body pain. Patient was seen by myself was found to be in acute renal failure with hyperkalemia. Patient was quite clear he wished to be comfort measures. He returned home but has had increasing pain here in the department. Patient is accompanied by his son as well as his . Their goal is comfort for pain and to return home. They are interested in hospice consult and had actually been in contact with us via phone earlier in the day. Social work has also been in contact here in the department. Patient has had some mild increasing confusion. He is denying any chest pain or shortness of breath currently. No vomiting. He has had a small amount of urine output. He been stooling and states he has a stool softener that he uses it is often helpful. Related Data Home Medications Medication Instructions Recorded Confirmed simvastatin 20 mg tablet 20 mg PO Q DAY #0 04/29/17 aspirin 81 mg tablet,delayed 162 mg PO DAILY 03/26/18 03/26/18 release (Adult Aspirin Regimen) cholecalciferol (vitamin D3) 50 2,000 unit PO DAILY 03/26/18 03/26/18 mcg (2,000 unit) capsule coQ10 10 ml PO DAILY 03/26/18 03/26/18 glucosamine HCl 1,500 mg tablet 1,500 mg PO DAILY 03/26/18 03/26/18 mecobalamin (vitamin B12) 1,000 1,000 mcg SL DAILY 03/26/18 03/26/18 mcg disintegrating tablet,sublingual multivitamin,vn-emko-hmuflprs 1 tab PO DAILY 03/26/18 03/26/18 (Complete Multivitamin) omega 1-pte-iya-fish oil 1,200 mg cap PO cap 03/26/18 03/26/18 (144 mg-216 mg) capsule Previous Rx's Medication Instructions Recorded allopurinol 300 mg tablet 300 mg PO Q DAY #30 tab 04/14/18 lisinopril 40 mg tablet 40 mg PO QDAY #30 tab 11/23/18 lorazepam 1 mg tablet (Ativan) 0.5 mg PO TID PRN #20 tab 03/12/21 morphine 20 mg/5 mL (4 mg/mL) oral 5 mg PO Q6H PRN #100 ml 03/12/21 solution Allergies Allergy/AdvReac Type Severity Reaction Status Date / Time Penicillins Allergy Verified 03/12/21 17:23 Review of Systems Review of Systems ROS Unobtainable: All systems reviewed & are unremarkable except as noted in HPI and below Patient History Medical History Cataracts, bilateral (2012) Chickenpox (~1944) Dupuytren's contracture of both hands (~2014) Eczema (~2004) Elevated PSA (2006) Hyperlipemia Hypertension Kidney stones (~1975) Low testosterone (2008) Measles (~1944) Mumps (~1944) Osteoarthritis (~2011) Prostate cancer (2007) Sleep apnea (2012) Surgical History History of cataract removal with insertion of prosthetic lens (2014) History of tonsillectomy (1939) Status post appendectomy (1974) Status post radical cystoprostatectomy (2007) Family History Father No problems noted. Mother Heart disease Social History Smoking Status: Never smoker alcohol intake: current Smoking Status: Never smoker alcohol intake frequency: a few times a week Alcohol type: wine Substance Use Type: does not use Exam Narrative Exam Narrative: GENERAL: Alert oriented to self and location and current situati on. Patient does have some mild confusion. Patient is in mild distress. HEENT: Head normocephalic, atraumatic, EOMI, pupils reactive, face symmetric, moist mucous membranes NECK: Supple, full range of motion CARDIOVASCULAR: Regular rate and rhythm without murmurs, rubs or gallops. RESPIRATORY: Breath sounds equal bilaterally, no wheezes rales or rhonchi. ABDOMEN: Soft, nontender on exam. Normoactive bowel sounds all 4 quadrants. No guarding or rebound, rigidity, no mass : No CVA tenderness, Jones catheter in place with a very small amount a urine which is somewhat bloody. EXTREMITIES: Normal range of motion, no clubbing or edema. Neurovascularly intact NEUROLOGICAL: Cranial nerves II through XII grossly intact. Moving all extremities SKIN: Warm, dry, no petechiae, no rashes or lesions. Initial Vital Signs Initial Vital Signs: Vital Signs Temperature 96.6 F L 03/12/21 17:17 Pulse Rate 95 H 03/12/21 17:17 Respiratory Rate 16 03/12/21 17:17 Blood Pressure 192/89 H 03/12/21 17:17 Pulse Oximetry 99 03/12/21 17:17 Course Orders Ordered: ED Orders 03/12/21 17:24 [place] to [facility] [place] Stat Discontinued Medications Hydromorphone HCl (Hydromorphone 1 Mg Inj) 1 mg IM NOW ONE Stop: 03/12/21 17:28 Last Admin: 03/12/21 17:44 Dose: 1 mg Documented by: GARY Vital Signs Vital signs: Vital Signs - 8 hr 03/12/21 17:17 Temperature 96.6 F L Pulse Rate 95 H Respiratory Rate 16 Blood Pressure 192/89 H Pulse Oximetry 99 Medical Decision Making [facility] Narrative Medical decision making narrative: 85-year-old male who comes here with complaint of generalized pain although more localized to the abdomen. Patient was seen by myself yesterday. He has known bladder cancer that was diagnosed several months ago and he for went and treatment and arrived yesterday for decreased urine output and was found to be in acute renal failure. Patient's goal and family's goal at this time is to have a POLST form completed to confirm comfort measures patient also is quite uncomfortable and was given a dose of IM pain medication. He does not wish hospitalization for comfort measures. They are interested in consult with hospice if this is able to be arranged in a timely manner. They are also interested in options for pain control and to make him more comfortable at home as he goes through the dying process. Social work was involved in the department and help to contact hospice to help facilitate a faster referral. Patient was given prescription for oral liquid pain medication as well as Ativan p.o. to help with anxiety or any agitation that may occur. I did review briefly the dying process with family. They are aware they can return if they are having difficulty with keeping patient comfortable at home. All questions were answered. Discharge Plan Departure Patient Disposition: Home Clinical Impression: Renal failure, Pain Activity Restrictions/Additional Instructions: As discussed with the social services specialist, Hospice should be reaching out to you tomorrow. Included is a prescription for pain medication. This medication will make you constipated please take a stool softener once to twice daily until stools are soft and regular. This medication can also be helpful if you are feeling short of breath it can help with that sensation and decrease it. Also include is a medication which is specifically for anxiety but can be helpful in conjunction with pain medication to make you more comfortable. [facility] [place]. Please return if you are having difficulty with agitation, maintaining comfort having increasing pain that you are unable to control at home for have new or concerning issues. Prescriptions: New morphine 20 mg/5 mL (4 mg/mL) solution 5 mg PO Q6H PRN (Reason: pain) Qty: 100 RF: 0 lorazepam [Ativan] 1 mg tablet 0.5 mg PO TID PRN (Reason: agitation) Qty: 20 RF: 0 No Action multivitamin,[id number] [Complete Multivitamin] tablet 1 tab PO DAILY RF: 0 aspirin [Adult Aspirin Regimen] 81 mg tablet,delayed release (DR/EC) 162 mg PO DAILY RF: 0 omega 5-npd-aye-fish oil 1,200 (144-216) mg capsule PO RF: 0 glucosamine HCl 1,500 mg tablet 1,500 mg PO DAILY RF: 0 cholecalciferol (vitamin D3) 2,000 unit capsule 2,000 unit PO DAILY RF: 0 mecobalamin (vitamin B12) 1,000 mcg tablet,disintegrating 1,000 mcg SL DAILY RF: 0 coQ10 liquid 10 ml PO DAILY RF: 0 simvastatin 20 MG tablet 20 mg PO Q DAY Qty: 0 RF: 0 allopurinol 300 mg tablet 300 mg PO Q DAY Qty: 30 RF: 6 lisinopril 40 mg tablet 40 mg PO QDAY Qty: 30 RF: 1 Referrals: Danielle Steele ARNP [Primary Care Provider] -
== END 2021-03-12 18:27 | disposition home or self-care (01) ==
PROVIDERS: Emergency Provider Emergency Medicine; Family Provider Nurse Practitioner; PCP Nurse Practitioner
DX: N19 Unspecified kidney failure (principal); E87.5 Hyperkalemia; C67.9 Malignant neoplasm of bladder, unspecified; R41.0 Disorientation, unspecified
CPT/HCPCS: 96372; 99283; J1170